=== PATIENT | female | born 1945 | race African-American/Black ===

== ENCOUNTER 2021-08-31 03:52 | Inpatient (IN) | payer MEDICARE, BC ==
[2021-08-31] MEDS ORDERED: Nitroglycerin 50 MG/250 ML BOT 250 ML ONE (04:14)
[2021-08-31] MEDS ORDERED: Nitroglycerin 0.4 MG TAB 1 EACH ONE (04:14)
[2021-08-31] MEDS ORDERED: Cefepime 2 GM VIAL ONE (04:32)
[2021-08-31 04:37] LABS: Actual Bicarbonate (HCO3v) 27 mEq/L (22-28); Base Excess 0.8 mEq/L (-2.0 to +3.0); Calcium, Ionized (venous) 1.13 mmol/L (1.16-1.32); Chloride (VBG) 102 mmol/L (98-106); Critical Notified Whom: MD; Hemoglobin (Hb) 12.7 g/dL (11.7-16.1); Potassium (VBG) 3.75 mmol/L (3.70-5.30); Puncture Site Other Site; Sodium 139.9 mmol/L (133-146); pH (venous) 7.34 (7.32-7.43)
[2021-08-31 04:53] LABS: #Basophils 0.1 10x3/uL (0.0-0.2); #Eosinphils 0.1 10x3/uL (0.0-0.5); #Monocytes 0.7 10x3/uL (0.0-1.1); #Neutrophils 12.6 10x3/uL (1.5-8.4); %Basophils 0.5 % (0.0-2.0); %Eosinophils 0.7 % (0.0-6.0); %Lymphocytes 8.1 % (18.0-47.0); %Monocytes 4.8 % (0.0-10.0); %Neutrophils 85.5 % (40.0-75.0); Hemoglobin 12.1 g/dL (12.0-15.5); Mean Corpuscular HGB CONC 31.4 g/dL (32.0-36.0); Mean Corpuscular Hemoglobin 27.8 pg (27.0-33.0); Mean Corpuscular Volume 88.5 fl (81.6-98.3); Mean Platelet Volume 9.9 fl (7.4-10.4); Platelet Count 197 10x3/uL (150-450); RBC Distribution Width 15.9 % (11.5-14.5); Red Blood Cell (RBC) Count 4.35 10x6/uL (3.90-5.03); White Blood Cell (WBC) Count 14.8 10x3/uL (3.5-10.5)
[2021-08-31] MEDS ORDERED: Acetaminophen 500 MG TAB ONE (04:58)
[2021-08-31] MEDS ORDERED: Vancomycin HCl 500 MG VIAL ONE (04:58)
[2021-08-31 05:07] LABS: ALT (SGPT) 21 U/L (8-55); AST (SGOT) 24 U/L (5-34); Albumin 4.1 g/dL (3.4-4.8); Alkaline Phosphatase 157 U/L (40-110); Anion Gap 18 mmol/L (10-20); BUN (Urea Nitrogen) 28 mg/dL (9.8-20.1); Bilirubin, Total 1.2 mg/dL (0.2-1.2); Calc. Creatinine Clearance 0 mL/min (70-130); Calcium 9.5 mg/dL (7.8-10.44); Carbon Dioxide 25 mmol/L (23-31); Chloride 103 mmol/L (98-107); Globulin 2.9 g/dL (2.4-3.5); Glucose 239 mg/dL (83-110); Potassium 3.9 mmol/L (3.5-5.1); Sodium 142 mmol/L (136-145)
[2021-08-31 05:15] LABS: SARS-CoV-2 NAA Rapid Test Not Detected (NotDetected)
[2021-08-31 05:30] LABS: CKMB 1.2 ng/mL (0-6.6)
[2021-08-31 05:57] LABS: Bilirubin Neg (Negative); Blood, Urine 25 (Negative); Clarity Clear (Clear); Glucose, Urine (Dipstick) 100 mg/dL (Negative); Ketone, Urine Negative (Negative); Leukocyte Negative (Negative); Nitrite Negative (Negative); Protein, Urine (Dipstick) 500 mg/dl (Neg-Trace); Urobilinogen Normal mg/dL (Less than 2)
[2021-08-31 06:12] LABS: Bacteria/HPF None Seen HPF (None Seen); WBC/HPF 0-3 HPF (0-3)
[2021-08-31] MEDS ORDERED: Dextrose 5% in Water 1,000 ML IV PRN (06:34)
[2021-08-31] MEDS ORDERED: Dextrose 50% Abboject 50 ML SYRINGE SLOW IVP PRN (06:34)
[2021-08-31] MEDS ORDERED: Nitroglycerin 2% Ointment 1 INCH/1 GM Packet ONE (07:00)
[2021-08-31 07:42] LABS: Lactic Acid 0.8 mmol/L (0.5-2.2)
[2021-08-31 07:46] LABS: Magnesium 1.7 mg/dL (1.6-2.6); Phosphorus 3.5 mg/dL (2.3-4.7)
[2021-08-31 08:03] LABS: INR-International Normal Ratio 1.1; PTT 25.9 sec (22.0-33.0); Troponin I 0.379 ng/mL (< 0.028)
[2021-08-31] MEDS ORDERED: methylPREDNISolone Sod Succ/PF 125 MG/2 ML VIAL IVP SCH (08:30)
[2021-08-31] MEDS ORDERED: Arformoterol 15 MCG/2 ML NEB NEB SCH (08:45)
[2021-08-31] MEDS ORDERED: Levothyroxine Sodium 100 MCG TAB PO SCH (08:45)
[2021-08-31 08:58] VITALS: BMI 26.5
[2021-08-31 09:36] VITALS: TEMP 98.7
[2021-08-31] MEDS: Amlodipine 10 MG TAB PO SCH (10:00)
[2021-08-31] MEDS: Pantoprazole 40 MG VIAL IVP SCH (10:06)
[2021-08-31] MEDS: Heparin 5,000 UNITS/ML VIAL SC SCH ×3 (10:06→20:05)
[2021-08-31] MEDS: Clopidogrel Bisulfate 75 MG TAB PO SCH (10:07)
[2021-08-31] MEDS: Aspirin 81 mg Enteric Coated Tablet PO SCH (10:07)
[2021-08-31] MEDS: Lantus 1000 UNITS/10 ML VIAL SC SCH (10:08)
[2021-08-31 10:48] LABS: Troponin I 0.805 ng/mL (< 0.028)
[2021-08-31 12:21] LABS: Hep B Surf Ag Non-Reactive S/CO (NonReactive)
[2021-08-31] MEDS: Folic Acid/Vit B Comp W-C PO SCH (12:35)
[2021-08-31] MEDS: Nitroglycerin 2% Ointment 1 INCH/1 GM Packet TOP SCH ×3 (12:36→23:46)
[2021-08-31] MEDS: HumaLOG 300 UNITS/3 ML VIAL SC PRN ×3 (13:14→21:06)
[2021-08-31] MEDS: Carvedilol 12.5 MG TAB PO SCH ×2 (14:45→20:05)
[2021-08-31] MEDS: cloNIDine 0.1 MG TAB PO SCH (14:45)
[2021-08-31] MEDS: Minoxidil 2.5 MG TAB PO SCH ×2 (14:46→20:06)
[2021-08-31] MEDS: Furosemide 40 MG TAB PO SCH ×2 (14:53→20:05)
[2021-08-31] MEDS ORDERED: Losartan Potassium 50 MG TAB PO SCH (17:00)
[2021-08-31] MEDS: methylPREDNISolone Sod Succ 40 MG VIAL IVP SCH (18:45)
[2021-08-31] MEDS: Arformoterol 15 MCG/2 ML NEB NEB SCH (19:50)
[2021-08-31 20:51] LABS: HBSAB Concentration 127.23 mIU/mL; Hep B Surf AB Reactive (NonReactive)
[2021-08-31] MEDS ORDERED: Atorvastatin Calcium 40 MG TAB PO SCH (21:00)
[2021-08-31] MEDS ORDERED: Lantus 1000 UNITS/10 ML VIAL SC SCH (21:00)
[2021-09-01] MEDS: Nitroglycerin 2% Ointment 1 INCH/1 GM Packet TOP SCH ×2 (05:06→10:33)
[2021-09-01 05:09] LABS: #Monocytes 0.5 10x3/uL (0.0-1.1); #Neutrophils 6.4 10x3/uL (1.5-8.4); %Basophils 0.4 % (0.0-2.0); %Lymphocytes 9.1 % (18.0-47.0); %Monocytes 5.9 % (0.0-10.0); %Neutrophils 84.1 % (40.0-75.0); Hemoglobin 10.2 g/dL (12.0-15.5); Mean Corpuscular Hemoglobin 27.6 pg (27.0-33.0); Mean Corpuscular Volume 86.4 fl (81.6-98.3); Platelet Count 150 10x3/uL (150-450); RBC Distribution Width 15.7 % (11.5-14.5); Red Blood Cell (RBC) Count 3.69 10x6/uL (3.90-5.03); White Blood Cell (WBC) Count 7.6 10x3/uL (3.5-10.5)
[2021-09-01 05:16] LABS: Anion Gap 13 mmol/L (10-20); BUN (Urea Nitrogen) 24 mg/dL (9.8-20.1); Calc. Creatinine Clearance 12 mL/min (70-130); Calcium 8.7 mg/dL (7.8-10.44); Carbon Dioxide 29 mmol/L (23-31); Cardiac Risk 2.4 (Less than 4.5); Chloride 100 mmol/L (98-107); Cholesterol 95 mg/dl (< 200 Desired); Glucose 222 mg/dL (83-110); HDL Cholesterol 39 mg/dL (>60 Neg Risk); LDL Cholesterol, Calculated 47 mg/dL; Potassium 4.2 mmol/L (3.5-5.1); Sodium 138 mmol/L (136-145); Triglycerides 47 mg/dL (Less than 150)
[2021-09-01] MEDS ORDERED: Levothyroxine Sodium 100 MCG TAB PO SCH (06:00)
[2021-09-01] MEDS: Arformoterol 15 MCG/2 ML NEB NEB SCH (06:50)
[2021-09-01] MEDS: methylPREDNISolone Sod Succ 40 MG VIAL IVP SCH (08:05)
[2021-09-01] MEDS: HumaLOG 300 UNITS/3 ML VIAL SC PRN (08:06)
[2021-09-01] MEDS ORDERED: Cefepime 0.5 GM in Sodium Chloride 0.9% 100 ML IVPB SCH (09:00)
[2021-09-01] MEDS: Amlodipine 10 MG TAB PO SCH (09:00)
[2021-09-01] MEDS: Minoxidil 2.5 MG TAB PO SCH (10:24)
[2021-09-01] MEDS: Folic Acid/Vit B Comp W-C PO SCH (10:24)
[2021-09-01] MEDS: Aspirin 81 mg Enteric Coated Tablet PO SCH (10:26)
[2021-09-01] MEDS: Carvedilol 12.5 MG TAB PO SCH (10:26)
[2021-09-01] MEDS: Furosemide 40 MG TAB PO SCH (10:27)
[2021-09-01] MEDS: Heparin 5,000 UNITS/ML VIAL SC SCH (10:27)
[2021-09-01] MEDS: cloNIDine 0.1 MG TAB PO SCH (10:27)
[2021-09-01] MEDS: Pantoprazole 40 MG VIAL IVP SCH (10:27)
[2021-09-01] MEDS: Clopidogrel Bisulfate 75 MG TAB PO SCH (10:27)
[2021-09-01] MEDS: Lantus 1000 UNITS/10 ML VIAL SC SCH (10:29)
[2021-09-01 10:34] VITALS: BP 172/78
== END 2021-09-01 12:30 | disposition home or self-care (01) | DRG 871 ==
LOC: SUATTDRO 03:52 → CSHERS 03:52 → CSHIMCU 08:25
PROVIDERS: ADMIT Hospitalist; ATTEND Hospitalist
PROC: 5A09357 Assistance with Respiratory Ventilation, Less than 24 Consecutive Hours, Continuous Positive Airway Pressure (ICD-10-PCS; principal; 2021-08-31)
PROC: 5A1D70Z Performance of Urinary Filtration, Intermittent, Less than 6 Hours Per Day (ICD-10-PCS; 2021-09-01)
DX: A41.9 Sepsis, unspecified organism (principal); J96.01 Acute respiratory failure with hypoxia; N18.6 End stage renal disease; J18.9 Pneumonia, unspecified organism; I50.33 Acute on chronic diastolic (congestive) heart failure; I21.4 Non-ST elevation (NSTEMI) myocardial infarction; I69.354 Hemiplegia and hemiparesis following cerebral infarction affecting left non-dominant side; I13.2 Hypertensive heart and chronic kidney disease with heart failure and with stage 5 chronic kidney disease, or end stage renal disease; I16.1 Hypertensive emergency; Z20.822 Contact with and (suspected) exposure to COVID-19; J44.9 Chronic obstructive pulmonary disease, unspecified; E11.22 Type 2 diabetes mellitus with diabetic chronic kidney disease; E03.9 Hypothyroidism, unspecified; N28.89 Other specified disorders of kidney and ureter; D63.1 Anemia in chronic kidney disease; I35.0 Nonrheumatic aortic (valve) stenosis; R65.20 Severe sepsis without septic shock; E78.5 Hyperlipidemia, unspecified; E11.40 Type 2 diabetes mellitus with diabetic neuropathy, unspecified; Z99.2 Dependence on renal dialysis; Z79.4 Long term (current) use of insulin; Z79.899 Other long term (current) drug therapy; Z79.82 Long term (current) use of aspirin; Z98.51 Tubal ligation status; Z98.890 Other specified postprocedural states; Z98.42 Cataract extraction status, left eye
CPT/HCPCS: 0240U; 36415; 36416; 71045; 80048; 80053; 80061; 81003; 81015; 82553; 82805; 83605; 83735; 83880; 84100; 84443; 84484; 85025; 85610; 85730; 86706; 87040; 87086; 87340; 90935; 93005; 93010; 93306; 94640; 94660; 94760; 94762; C9113; G0257; J0692; J1644; J1815; J1956; J2920; J2930; J3370; J3490; J7620

== ENCOUNTER 2021-09-07 11:48 | Outpatient (CLI) | payer MEDICARE, BC | END 2021-09-07 11:49 | disposition home or self-care (01) | LOC: CSHMAMMO 11:48 | PROVIDERS: ATTEND Physician Assistant | DX: Z12.31 Encounter for screening mammogram for malignant neoplasm of breast (principal) | CPT/HCPCS: 77063; 77067 ==

== ENCOUNTER 2021-10-30 17:50 | Emergency (ER) | payer MEDICARE, BC ==
[2021-10-30 19:42] LABS: #Basophils 0.1 10x3/uL (0.0-0.2); #Eosinphils 0.2 10x3/uL (0.0-0.5); #Monocytes 0.4 10x3/uL (0.0-1.1); #Neutrophils 6.5 10x3/uL (1.5-8.4); %Basophils 0.7 % (0.0-2.0); %Lymphocytes 11.7 % (18.0-47.0); %Monocytes 5.4 % (0.0-10.0); %Neutrophils 79.7 % (40.0-75.0); Hemoglobin 10.4 g/dL (12.0-15.5); Mean Corpuscular HGB CONC 32.2 g/dL (32.0-36.0); Mean Corpuscular Hemoglobin 29.5 pg (27.0-33.0); Mean Corpuscular Volume 91.8 fl (81.6-98.3); Mean Platelet Volume 9.9 fl (7.4-10.4); Platelet Count 176 10x3/uL (150-450); RBC Distribution Width 15.5 % (11.5-14.5); Red Blood Cell (RBC) Count 3.52 10x6/uL (3.90-5.03); White Blood Cell (WBC) Count 8.1 10x3/uL (3.5-10.5)
[2021-10-30 19:47] LABS: ALT (SGPT) 16 U/L (8-55); AST (SGOT) 22 U/L (5-34); Alkaline Phosphatase 226 U/L (40-110); Anion Gap 17 mmol/L (10-20); BUN (Urea Nitrogen) 17 mg/dL (9.8-20.1); Bilirubin, Total 0.7 mg/dL (0.2-1.2); Calc. Creatinine Clearance 0 mL/min (70-130); Calcium 9.6 mg/dL (7.8-10.44); Carbon Dioxide 29 mmol/L (23-31); Chloride 99 mmol/L (98-107); Globulin 3.2 g/dL (2.4-3.5); Glucose 294 mg/dL (83-110); Lipase 65 U/L (8-78); Potassium 4.3 mmol/L (3.5-5.1); Protein, Total 7.2 g/dL (5.8-8.1); Sodium 141 mmol/L (136-145)
[2021-10-30 20:16] LABS: Bilirubin 3+ (Negative); Blood, Urine 250 (Negative); Clarity Cloudy (Clear); Glucose, Urine (Dipstick) 100 mg/dL (Negative); Ketone, Urine 5 mg/dL (Negative); Leukocyte 100 (Negative); Nitrite Positive (Negative); Protein, Urine (Dipstick) 500 mg/dl (Neg-Trace)
[2021-10-30 20:31] LABS: RBC/HPF Greater than 50 HPF (0-3); Renal Epithelial 0-3 HPF (None Seen); Squamous Epithelial 0-3 HPF (0-3); Transitional Epithelial 0-3 HPF (None Seen); WBC/HPF Greater Than 50 HPF (0-3)
[2021-10-30 20:34] LABS: Bacteria/HPF 2+ HPF (None Seen)
== END 2021-10-30 21:10 | disposition home or self-care (01) ==
LOC: CSHERS 17:50
DX: N39.0 Urinary tract infection, site not specified (principal); R11.2 Nausea with vomiting, unspecified; E11.9 Type 2 diabetes mellitus without complications; E03.9 Hypothyroidism, unspecified; I10 Essential (primary) hypertension; J45.909 Unspecified asthma, uncomplicated; Z86.73 Personal history of transient ischemic attack (TIA), and cerebral infarction without residual deficits; Z79.899 Other long term (current) drug therapy; Z79.82 Long term (current) use of aspirin
CPT/HCPCS: 36415; 74176; 80053; 81003; 81015; 83690; 85025

== ENCOUNTER 2021-11-04 15:56 | Outpatient (CLI) | payer MEDICARE, OTHER | END 2021-11-04 15:57 | disposition home or self-care (01) | LOC: CSHULT 15:56 | PROVIDERS: ATTEND Urology | DX: N18.6 End stage renal disease (principal); N28.89 Other specified disorders of kidney and ureter | CPT/HCPCS: 76770 ==

== ENCOUNTER 2021-11-08 16:52 | Emergency (ER) | payer MEDICARE, OTHER ==
[2021-11-08 17:54] LABS: #Basophils 0.1 10x3/uL (0.0-0.2); #Eosinphils 0.2 10x3/uL (0.0-0.5); #Monocytes 0.8 10x3/uL (0.0-1.1); #Neutrophils 8.6 10x3/uL (1.5-8.4); %Basophils 0.9 % (0.0-2.0); %Lymphocytes 8.4 % (18.0-47.0); %Monocytes 7.2 % (0.0-10.0); %Neutrophils 81.1 % (40.0-75.0); Hemoglobin 9.6 g/dL (12.0-15.5); Mean Corpuscular HGB CONC 32.9 g/dL (32.0-36.0); Mean Corpuscular Hemoglobin 29.4 pg (27.0-33.0); Mean Corpuscular Volume 89.6 fl (81.6-98.3); Mean Platelet Volume 10.2 fl (7.4-10.4); Platelet Count 211 10x3/uL (150-450); RBC Distribution Width 14.5 % (11.5-14.5); Red Blood Cell (RBC) Count 3.26 10x6/uL (3.90-5.03); White Blood Cell (WBC) Count 10.6 10x3/uL (3.5-10.5)
[2021-11-08 18:05] LABS: ALT (SGPT) 19 U/L (8-55); AST (SGOT) 21 U/L (5-34); Alkaline Phosphatase 163 U/L (40-110); Anion Gap 19 mmol/L (10-20); BUN (Urea Nitrogen) 47 mg/dL (9.8-20.1); Bilirubin, Total 0.6 mg/dL (0.2-1.2); Calc. Creatinine Clearance 0 mL/min (70-130); Calcium 9.1 mg/dL (7.8-10.44); Carbon Dioxide 24 mmol/L (23-31); Chloride 98 mmol/L (98-107); Globulin 2.8 g/dL (2.4-3.5); Glucose 300 mg/dL (83-110); Potassium 4.4 mmol/L (3.5-5.1); Protein, Total 6.8 g/dL (5.8-8.1); Sodium 137 mmol/L (136-145)
[2021-11-08 18:11] LABS: Bilirubin 1+ (Negative); Blood, Urine 25 (Negative); Glucose, Urine (Dipstick) 100 mg/dL (Negative); Ketone, Urine Negative (Negative); Leukocyte 25 (Negative); Nitrite Negative (Negative); Protein, Urine (Dipstick) 100 mg/dl (Neg-Trace); Specific Gravity, Urine 1.015 (1.002-1.036); Urobilinogen Normal mg/dL (Less than 2)
[2021-11-08 18:24] LABS: Bacteria/HPF 2+ HPF (None Seen); Clarity Clear (Clear); Mucous/LPF 1+ LPF (<2+); RBC/HPF 0-3 HPF (0-3); Squamous Epithelial 0-3 HPF (0-3); Transitional Epithelial 0-3 HPF (None Seen)
[2021-11-08] MEDS ORDERED: Ondansetron ODT 4 MG TAB ONE (18:34)
[2021-11-08] MEDS ORDERED: Ketorolac Tromethamine 30 MG/ML VIAL ONE (18:35)
== END 2021-11-08 19:44 | disposition home or self-care (01) ==
LOC: CSHERS 16:52
DX: R10.9 Unspecified abdominal pain (principal); E11.9 Type 2 diabetes mellitus without complications; E03.9 Hypothyroidism, unspecified; I10 Essential (primary) hypertension; K21.9 Gastro-esophageal reflux disease without esophagitis; J45.909 Unspecified asthma, uncomplicated; Z86.73 Personal history of transient ischemic attack (TIA), and cerebral infarction without residual deficits; Z79.899 Other long term (current) drug therapy; Z79.82 Long term (current) use of aspirin
CPT/HCPCS: 36415; 80053; 81003; 81015; 85025; 96372; 99284; J1885; Q0162

== ENCOUNTER 2022-03-06 00:42 | Inpatient (IN) | payer MEDICARE, OTHER ==
[2022-03-06 01:47] LABS: #Basophils 0.1 10x3/uL (0.0-0.2); #Eosinphils 0.3 10x3/uL (0.0-0.5); #Monocytes 1.2 10x3/uL (0.0-1.1); #Neutrophils 14.1 10x3/uL (1.5-8.4); %Basophils 0.6 % (0.0-2.0); %Eosinophils 1.8 % (0.0-6.0); %Lymphocytes 5.7 % (18.0-47.0); %Monocytes 6.9 % (0.0-10.0); %Neutrophils 84.6 % (40.0-75.0); Hemoglobin 10.4 g/dL (12.0-15.5); Mean Corpuscular HGB CONC 31.8 g/dL (32.0-36.0); Mean Corpuscular Hemoglobin 29.1 pg (27.0-33.0); Mean Corpuscular Volume 91.6 fl (81.6-98.3); Mean Platelet Volume 9.4 fl (7.4-10.4); Platelet Count 169 10x3/uL (150-450); RBC Distribution Width 15.3 % (11.5-14.5); Red Blood Cell (RBC) Count 3.57 10x6/uL (3.90-5.03); White Blood Cell (WBC) Count 16.7 10x3/uL (3.5-10.5)
[2022-03-06 01:54] LABS: ALT (SGPT) 15 U/L (8-55); AST (SGOT) 24 U/L (5-34); Albumin 3.5 g/dL (3.4-4.8); Alkaline Phosphatase 122 U/L (40-110); Anion Gap 20 mmol/L (10-20); BUN (Urea Nitrogen) 25 mg/dL (9.8-20.1); Bilirubin, Total 1.1 mg/dL (0.2-1.2); Calc. Creatinine Clearance 0 mL/min (70-130); Calcium 9.3 mg/dL (7.8-10.44); Carbon Dioxide 25 mmol/L (23-31); Chloride 103 mmol/L (98-107); Globulin 2.7 g/dL (2.4-3.5); Glucose 182 mg/dL (83-110); Potassium 4.1 mmol/L (3.5-5.1); Protein, Total 6.2 g/dL (5.8-8.1); Sodium 144 mmol/L (136-145)
[2022-03-06 02:11] LABS: CKMB 1.7 ng/mL (0-6.6)
[2022-03-06] MEDS ORDERED: cloNIDine 0.1 MG TAB ONE (02:24)
[2022-03-06] MEDS ORDERED: Nitroglycerin 2% Ointment 1 INCH/1 GM Packet ONE (02:25)
[2022-03-06] MEDS ORDERED: Enalaprilat Dihydrate 1.25 MG/ML VIAL SLOW IVP SCH (02:30)
[2022-03-06] MEDS ORDERED: Furosemide 40 MG/4 ML VIAL ONE (04:17)
[2022-03-06 06:05] LABS: SARS-CoV-2 NAA Rapid Test Not Detected (NotDetected)
[2022-03-06 06:20] LABS: CKMB 1.5 ng/mL (0-6.6)
[2022-03-06] MEDS ORDERED: Dextrose 5% in Water 1,000 ML IV PRN (06:24)
[2022-03-06] MEDS ORDERED: Dextrose 50% Abboject 50 ML SYRINGE SLOW IVP PRN (06:24)
[2022-03-06] MEDS ORDERED: Aspirin Chewable 81 MG TAB PO SCH (06:30)
[2022-03-06 06:36] LABS: Magnesium 1.9 mg/dL (1.6-2.6); Phosphorus 3.5 mg/dL (2.3-4.7)
[2022-03-06] MEDS ORDERED: Albuterol Sulfate 2.5 mg/3 ml Neb NEB PRN (08:26)
[2022-03-06] MEDS ORDERED: Heparin 10,000 UNITS/ 10 ML VIAL FS SCH (08:30)
[2022-03-06] MEDS ORDERED: EPOETIN ALFA-EPBX (ESRD) 3,000 UNIT/ML VIAL IVP SCH (08:30)
[2022-03-06] MEDS: Nitroglycerin 2% Ointment 1 INCH/1 GM Packet TOP SCH ×3 (08:38→21:25)
[2022-03-06 08:49] VITALS: BMI 24.0
[2022-03-06] MEDS: Carvedilol 25 MG TAB PO SCH ×2 (08:58→16:24)
[2022-03-06] MEDS: cloNIDine 0.1 MG TAB PO SCH ×2 (08:58→19:52)
[2022-03-06] MEDS: Clopidogrel Bisulfate 75 MG TAB PO SCH (08:58)
[2022-03-06] MEDS: Heparin 5,000 UNITS/ML VIAL SC SCH ×3 (08:58→19:52)
[2022-03-06] MEDS: Losartan Potassium 50 MG TAB PO SCH (08:58)
[2022-03-06] MEDS: Amlodipine 10 MG TAB PO SCH (08:59)
[2022-03-06] MEDS: Minoxidil 2.5 MG TAB PO SCH ×2 (09:00→19:54)
[2022-03-06 09:03] VITALS: BP 173/80
[2022-03-06 10:15] VITALS: TEMP 97.8
[2022-03-06 10:22] LABS: CKMB 1.5 ng/mL (0-6.6)
[2022-03-06] MEDS: HumaLOG 300 UNITS/3 ML VIAL SC PRN ×2 (16:24→21:42)
[2022-03-06] MEDS ORDERED: Atorvastatin Calcium 40 MG TAB PO SCH (21:00)
[2022-03-06] MEDS ORDERED: Lantus 1000 UNITS/10 ML VIAL SC SCH (21:00)
[2022-03-07] MEDS: Nitroglycerin 2% Ointment 1 INCH/1 GM Packet TOP SCH (06:08)
[2022-03-07] MEDS: Carvedilol 25 MG TAB PO SCH (08:19)
[2022-03-07] MEDS: Losartan Potassium 50 MG TAB PO SCH (08:19)
[2022-03-07] MEDS: Amlodipine 10 MG TAB PO SCH (08:19)
[2022-03-07] MEDS: Clopidogrel Bisulfate 75 MG TAB PO SCH (08:19)
[2022-03-07] MEDS: cloNIDine 0.1 MG TAB PO SCH (08:19)
[2022-03-07] MEDS: Heparin 5,000 UNITS/ML VIAL SC SCH (08:20)
[2022-03-07] MEDS ORDERED: Aspirin 81 mg Enteric Coated Tablet PO SCH (09:00)
[2022-03-07] MEDS: Minoxidil 2.5 MG TAB PO SCH (09:49)
== END 2022-03-07 15:09 | disposition home or self-care (01) | DRG 291 ==
LOC: CSHERS 00:42 → SUATTDRO 00:42 → CSHIMCU 08:23
PROVIDERS: ADMIT Internal Medicine; ATTEND Internal Medicine
PROC: 5A1D70Z Performance of Urinary Filtration, Intermittent, Less than 6 Hours Per Day (ICD-10-PCS; principal; 2022-03-06)
DX: I13.2 Hypertensive heart and chronic kidney disease with heart failure and with stage 5 chronic kidney disease, or end stage renal disease (principal); N18.6 End stage renal disease; J96.01 Acute respiratory failure with hypoxia; J81.0 Acute pulmonary edema; I50.33 Acute on chronic diastolic (congestive) heart failure; D63.1 Anemia in chronic kidney disease; D72.829 Elevated white blood cell count, unspecified; J44.9 Chronic obstructive pulmonary disease, unspecified; E11.40 Type 2 diabetes mellitus with diabetic neuropathy, unspecified; E11.22 Type 2 diabetes mellitus with diabetic chronic kidney disease; Z20.822 Contact with and (suspected) exposure to COVID-19; Z79.4 Long term (current) use of insulin; Z79.890 Hormone replacement therapy; Z99.2 Dependence on renal dialysis; Z79.82 Long term (current) use of aspirin; Z79.84 Long term (current) use of oral hypoglycemic drugs; Z79.899 Other long term (current) drug therapy; I25.2 Old myocardial infarction; Z98.42 Cataract extraction status, left eye; Z98.51 Tubal ligation status; Z98.890 Other specified postprocedural states; Z80.1 Family history of malignant neoplasm of trachea, bronchus and lung; Z80.8 Family history of malignant neoplasm of other organs or systems; Z79.02 Long term (current) use of antithrombotics/antiplatelets
CPT/HCPCS: 36416; 71045; 80053; 82553; 83735; 83880; 84100; 84484; 85025; 90935; 93005; 94660; 94760; 96374; 96375; G0257; J1644; J1815; J1940; Q5105; U0002

== ENCOUNTER 2022-07-30 12:03 | Emergency (ER) | payer MEDICARE, OTHER ==
[2022-07-30] MEDS ORDERED: HYDROcodone/Acetaminophen 5/325 mg Tablet ONE (12:41)
[2022-07-30] MEDS ORDERED: Lidocaine 5% Patch TD SCH (12:45)
== END 2022-07-30 14:09 | disposition home or self-care (01) ==
LOC: CSHERS 12:03
DX: M54.6 Pain in thoracic spine (principal); E11.22 Type 2 diabetes mellitus with diabetic chronic kidney disease; E03.9 Hypothyroidism, unspecified; I12.0 Hypertensive chronic kidney disease with stage 5 chronic kidney disease or end stage renal disease; N18.6 End stage renal disease; Z99.2 Dependence on renal dialysis; Z79.899 Other long term (current) drug therapy
CPT/HCPCS: 71045

== ENCOUNTER 2022-08-30 21:15 | Emergency (ER) | payer MEDICARE, OTHER ==
[~2022-08-30 21:15] MED LIST: GASTROGRAFIN 30 ML BOT ONE; Iopamidol 300 61% 100 ML VIAL FS ONE
[2022-08-30] MEDS ORDERED: Fentanyl 100 MCG/2 ML VIAL ONE (22:38)
[2022-08-30 22:51] LABS: #Basophils 0.1 10x3/uL (0.0-0.2); #Eosinphils 0.3 10x3/uL (0.0-0.5); #Monocytes 0.7 10x3/uL (0.0-1.1); #Neutrophils 5.8 10x3/uL (1.5-8.4); %Basophils 1.2 % (0.0-2.0); %Eosinophils 3.7 % (0.0-6.0); %Lymphocytes 14.7 % (18.0-47.0); %Monocytes 8.3 % (0.0-10.0); %Neutrophils 71.9 % (40.0-75.0); Hemoglobin 15.6 g/dL (12.0-15.5); Mean Corpuscular HGB CONC 32.6 g/dL (32.0-36.0); Mean Platelet Volume 9.2 fl (7.4-10.4); Platelet Count 198 10x3/uL (150-450); RBC Distribution Width 14.7 % (11.5-14.5); Red Blood Cell (RBC) Count 5.38 10x6/uL (3.90-5.03); White Blood Cell (WBC) Count 8.1 10x3/uL (3.5-10.5)
[2022-08-30 23:07] LABS: ALT (SGPT) 14 U/L (8-55); AST (SGOT) 22 U/L (5-34); Albumin 4.2 g/dL (3.4-4.8); Alkaline Phosphatase 181 U/L (40-110); Anion Gap 19 mmol/L (10-20); BUN (Urea Nitrogen) 29 mg/dL (9.8-20.1); Bilirubin, Total 0.8 mg/dL (0.2-1.2); Calc. Creatinine Clearance 0 mL/min (70-130); Calcium 9.6 mg/dL (7.8-10.44); Carbon Dioxide 26 mmol/L (23-31); Chloride 96 mmol/L (98-107); Estimated GFR 6; Globulin 3.7 g/dL (2.4-3.5); Glucose 179 mg/dL (83-110); Potassium 4.9 mmol/L (3.5-5.1); Protein, Total 7.9 g/dL (5.8-8.1); Sodium 136 mmol/L (136-145)
== END 2022-08-31 02:04 | disposition home or self-care (01) ==
LOC: CSHERS 21:15
DX: K43.9 Ventral hernia without obstruction or gangrene (principal); E11.22 Type 2 diabetes mellitus with diabetic chronic kidney disease; I12.0 Hypertensive chronic kidney disease with stage 5 chronic kidney disease or end stage renal disease; N18.6 End stage renal disease; E03.9 Hypothyroidism, unspecified; K21.9 Gastro-esophageal reflux disease without esophagitis; J44.9 Chronic obstructive pulmonary disease, unspecified; Z79.899 Other long term (current) drug therapy
CPT/HCPCS: 36415; 74177; 80053; 83605; 85025; 96374; J3010; Q9963; Q9967

== ENCOUNTER 2022-12-01 08:12 | Outpatient (CLI) | payer MEDICARE, OTHER | END 2022-12-01 08:13 | disposition home or self-care (01) | LOC: CSHULT 08:12 | PROVIDERS: ATTEND Urology | DX: N28.89 Other specified disorders of kidney and ureter (principal) | CPT/HCPCS: 76770 ==

== ENCOUNTER 2022-12-13 00:28 | Inpatient (IN) | payer MEDICARE, OTHER ==
[2022-12-13 01:06] LABS: #Basophils 0.1 10x3/uL (0.0-0.2); #Eosinphils 0.5 10x3/uL (0.0-0.5); #Monocytes 0.6 10x3/uL (0.0-1.1); %Basophils 1.7 % (0.0-2.0); %Eosinophils 7.3 % (0.0-6.0); %Lymphocytes 12.6 % (18.0-47.0); %Monocytes 8.1 % (0.0-10.0); Hemoglobin 9.5 g/dL (12.0-15.5); Mean Corpuscular HGB CONC 32.1 g/dL (32.0-36.0); Mean Corpuscular Hemoglobin 29.1 pg (27.0-33.0); Mean Corpuscular Volume 90.8 fl (81.6-98.3); Mean Platelet Volume 9.5 fl (7.4-10.4); Platelet Count 175 10x3/uL (150-450); RBC Distribution Width 14.9 % (11.5-14.5); Red Blood Cell (RBC) Count 3.26 10x6/uL (3.90-5.03); White Blood Cell (WBC) Count 7.2 10x3/uL (3.5-10.5)
[2022-12-13 01:17] LABS: ALT (SGPT) 11 U/L (8-55); AST (SGOT) 16 U/L (5-34); Albumin 3.7 g/dL (3.4-4.8); Alkaline Phosphatase 117 U/L (40-110); Anion Gap 14 mmol/L (10-20); BUN (Urea Nitrogen) 9 mg/dL (9.8-20.1); Bilirubin, Total 1.5 mg/dL (0.2-1.2); Calc. Creatinine Clearance 0 mL/min (70-130); Calcium 9.4 mg/dL (7.8-10.44); Carbon Dioxide 31 mmol/L (23-31); Chloride 102 mmol/L (98-107); Estimated GFR 13; Globulin 2.2 g/dL (2.4-3.5); Glucose 126 mg/dL (83-110); Potassium 3.5 mmol/L (3.5-5.1); Protein, Total 5.9 g/dL (5.8-8.1); Sodium 143 mmol/L (136-145)
[2022-12-13] MEDS ORDERED: cloNIDine 0.1 MG TAB ONE (01:34)
[2022-12-13 01:40] LABS: CKMB 1.7 ng/mL (0-6.6)
[2022-12-13] MEDS ORDERED: Ondansetron PF 4 MG/2 ML Vial IVP PRN (02:13)
[2022-12-13] MEDS ORDERED: Senokot S 8.6-50 MG TAB PO PRN (02:13)
[2022-12-13] MEDS ORDERED: Dextrose 5% in Water 1,000 ML IV PRN (02:13)
[2022-12-13] MEDS ORDERED: Dextrose 50% Abboject 50 ML SYRINGE SLOW IVP PRN (02:13)
[2022-12-13] MEDS ORDERED: Acetaminophen 325 MG TAB PO PRN (02:13)
[2022-12-13] MEDS ORDERED: Guaifenesin DM 100-10/5 ML UDCUP PO PRN (02:13)
[2022-12-13] MEDS ORDERED: Calcium Carbonate 500 MG ChewTAB PO PRN (02:13)
[2022-12-13] MEDS ORDERED: Ventolin HFA Inhaler 60 PUFF INHALER INH PRN (02:16)
[2022-12-13] MEDS ORDERED: Nitroglycerin 2% Ointment 1 INCH/1 GM Packet ONE (02:44)
[2022-12-13] MEDS ORDERED: hydrALAZINE 20 MG/ML VIAL SLOW IVP PRN (02:46)
[2022-12-13] MEDS ORDERED: Nitroglycerin 2% Ointment 1 INCH/1 GM Packet TOP SCH (03:00)
[2022-12-13] MEDS ORDERED: Ventolin HFA Inhaler 60 PUFF INHALER ONE (03:42)
[2022-12-13] MEDS ORDERED: hydrALAZINE 20 MG/ML VIAL ONE (03:50)
[2022-12-13 04:09] LABS: SARS-CoV-2 NAA Rapid Test Not Detected (NotDetected)
[2022-12-13] MEDS ORDERED: Ipratropium/Albuterol 3 ML NEB ONE (04:19)
[2022-12-13] MEDS ORDERED: Furosemide 40 MG/4 ML VIAL ONE (04:34)
[2022-12-13 04:59] LABS: CKMB 1.5 ng/mL (0-6.6)
[2022-12-13] MEDS: Levothyroxine Sodium 100 MCG TAB PO SCH (06:08)
[2022-12-13] MEDS: HumaLOG 300 UNITS/3 ML VIAL SC PRN ×2 (06:21→21:38)
[2022-12-13] MEDS ORDERED: Mometasone/Formoterol 200/5 60 PUFF INH SCH (06:30)
[2022-12-13] MEDS: Heparin 5,000 UNITS/ML VIAL SC SCH ×3 (07:47→21:30)
[2022-12-13] MEDS: Furosemide 40 MG TAB PO SCH ×2 (07:47→21:30)
[2022-12-13] MEDS: Amlodipine 10 MG TAB PO SCH (07:48)
[2022-12-13] MEDS: Folic Acid/Vit B Comp W-C PO SCH (07:48)
[2022-12-13] MEDS: Aspirin 81 mg Enteric Coated Tablet PO SCH (07:48)
[2022-12-13] MEDS: Carvedilol 25 MG TAB PO SCH ×2 (07:48→21:41)
[2022-12-13] MEDS ORDERED: cloNIDine 0.1 MG TAB PO SCH (09:00)
[2022-12-13] MEDS: Alogliptin 6.25 MG TAB PO SCH (09:02)
[2022-12-13] MEDS: Lantus 1000 UNITS/10 ML VIAL SC SCH (09:03)
[2022-12-13] MEDS: Minoxidil 2.5 MG TAB PO SCH ×2 (09:32→21:40)
[2022-12-13 10:26] LABS: CKMB 1.6 ng/mL (0-6.6)
[2022-12-13 10:29] LABS: Anion Gap 15 mmol/L (10-20); BUN (Urea Nitrogen) 13 mg/dL (9.8-20.1); Calc. Creatinine Clearance 11 mL/min (70-130); Calcium 9.1 mg/dL (7.8-10.44); Carbon Dioxide 30 mmol/L (23-31); Chloride 101 mmol/L (98-107); Estimated GFR 11; Glucose 113 mg/dL (83-110); Potassium 3.6 mmol/L (3.5-5.1); Sodium 142 mmol/L (136-145)
[2022-12-13] MEDS: Losartan Potassium 50 MG TAB PO SCH (15:28)
[2022-12-13] MEDS: cloNIDine 0.1 MG TAB PO SCH ×2 (16:22→21:30)
[2022-12-13] MEDS: Budesonide 0.25 MG/2 ML NEB INH SCH (20:40)
[2022-12-13] MEDS ORDERED: Lantus 1000 UNITS/10 ML VIAL SC SCH (21:00)
[2022-12-13] MEDS: Atorvastatin Calcium 40 MG TAB PO SCH (21:30)
[2022-12-14 05:02] LABS: HBSAg Index 0.15 S/CO (0-0.99); Hep B Surf Ag Non-Reactive S/CO (NonReactive)
[2022-12-14] MEDS: Levothyroxine Sodium 100 MCG TAB PO SCH (05:47)
[2022-12-14] MEDS: Budesonide 0.25 MG/2 ML NEB INH SCH ×2 (07:10→19:46)
[2022-12-14] MEDS: Amlodipine 10 MG TAB PO SCH (07:57)
[2022-12-14] MEDS: Carvedilol 25 MG TAB PO SCH ×2 (07:57→20:02)
[2022-12-14] MEDS: Furosemide 40 MG TAB PO SCH ×2 (07:57→20:01)
[2022-12-14] MEDS: Aspirin 81 mg Enteric Coated Tablet PO SCH (07:57)
[2022-12-14] MEDS: Folic Acid/Vit B Comp W-C PO SCH (07:58)
[2022-12-14] MEDS: Heparin 5,000 UNITS/ML VIAL SC SCH ×3 (07:58→20:00)
[2022-12-14] MEDS: Minoxidil 2.5 MG TAB PO SCH (12:49)
[2022-12-14] MEDS: Alogliptin 6.25 MG TAB PO SCH (13:34)
[2022-12-14] MEDS: cloNIDine 0.1 MG TAB PO SCH ×3 (13:35→20:02)
[2022-12-14 13:45] LABS: HBSAB Concentration 37.82 mIU/mL; Hep B Surf AB Reactive (NonReactive)
[2022-12-14] MEDS: hydrALAZINE 25 MG TAB PO SCH ×2 (15:27→20:01)
[2022-12-14] MEDS: Losartan Potassium 50 MG TAB PO SCH (17:10)
[2022-12-14] MEDS: HumaLOG 300 UNITS/3 ML VIAL SC PRN (17:30)
[2022-12-14] MEDS: Lantus 1000 UNITS/10 ML VIAL SC SCH (19:37)
[2022-12-14] MEDS: Atorvastatin Calcium 40 MG TAB PO SCH (20:01)
[2022-12-15] MEDS: HumaLOG 300 UNITS/3 ML VIAL SC PRN ×2 (00:19→11:53)
[2022-12-15 04:32] LABS: Platelet Count 169 10x3/uL (150-450)
[2022-12-15 04:56] LABS: Anion Gap 15 mmol/L (10-20); BUN (Urea Nitrogen) 17 mg/dL (9.8-20.1); Calc. Creatinine Clearance 11 mL/min (70-130); Calcium 9.2 mg/dL (7.8-10.44); Carbon Dioxide 26 mmol/L (23-31); Chloride 101 mmol/L (98-107); Estimated GFR 10; Glucose 115 mg/dL (83-110); Potassium 3.7 mmol/L (3.5-5.1); Sodium 138 mmol/L (136-145)
[2022-12-15] MEDS: Levothyroxine Sodium 100 MCG TAB PO SCH (05:34)
[2022-12-15 05:45] VITALS: BMI 22.4
[2022-12-15] MEDS: Budesonide 0.25 MG/2 ML NEB INH SCH (07:11)
[2022-12-15] MEDS: hydrALAZINE 25 MG TAB PO SCH ×2 (08:19→15:24)
[2022-12-15] MEDS: Furosemide 40 MG TAB PO SCH (08:20)
[2022-12-15] MEDS: Amlodipine 10 MG TAB PO SCH (08:20)
[2022-12-15] MEDS: Carvedilol 25 MG TAB PO SCH (08:20)
[2022-12-15] MEDS: Aspirin 81 mg Enteric Coated Tablet PO SCH (08:20)
[2022-12-15] MEDS: Alogliptin 6.25 MG TAB PO SCH (08:20)
[2022-12-15] MEDS: cloNIDine 0.1 MG TAB PO SCH (08:20)
[2022-12-15] MEDS: Folic Acid/Vit B Comp W-C PO SCH (08:21)
[2022-12-15] MEDS: Heparin 5,000 UNITS/ML VIAL SC SCH ×2 (08:22→14:59)
[2022-12-15] MEDS ORDERED: Minoxidil 2.5 MG TAB PO SCH (09:00)
[2022-12-15] MEDS ORDERED: Valsartan 80 MG TAB PO SCH (09:00)
[2022-12-15 12:18] VITALS: TEMP 98
[2022-12-15 15:05] VITALS: BP 105/49
== END 2022-12-15 16:30 | disposition home health service (06) | DRG 291 ==
LOC: CSHERS 00:28 → CSHERHOLD 02:43 → CSHICU 06:05
PROVIDERS: ADMIT Student in an Organized Health Care Education/Training Program; ATTEND Family Medicine
PROC: 5A09357 Assistance with Respiratory Ventilation, Less than 24 Consecutive Hours, Continuous Positive Airway Pressure (ICD-10-PCS; 2022-12-13)
PROC: 5A1D70Z Performance of Urinary Filtration, Intermittent, Less than 6 Hours Per Day (ICD-10-PCS; principal; 2022-12-14)
DX: I13.2 Hypertensive heart and chronic kidney disease with heart failure and with stage 5 chronic kidney disease, or end stage renal disease (principal); I50.33 Acute on chronic diastolic (congestive) heart failure; J96.01 Acute respiratory failure with hypoxia; N18.6 End stage renal disease; N25.81 Secondary hyperparathyroidism of renal origin; E78.5 Hyperlipidemia, unspecified; J45.909 Unspecified asthma, uncomplicated; E11.40 Type 2 diabetes mellitus with diabetic neuropathy, unspecified; I25.10 Atherosclerotic heart disease of native coronary artery without angina pectoris; D63.1 Anemia in chronic kidney disease; E03.9 Hypothyroidism, unspecified; R77.8 Other specified abnormalities of plasma proteins; I27.20 Pulmonary hypertension, unspecified; I35.0 Nonrheumatic aortic (valve) stenosis; D63.8 Anemia in other chronic diseases classified elsewhere; I16.0 Hypertensive urgency; Z20.822 Contact with and (suspected) exposure to COVID-19; Z79.899 Other long term (current) drug therapy; I25.2 Old myocardial infarction; Z99.2 Dependence on renal dialysis; Z86.73 Personal history of transient ischemic attack (TIA), and cerebral infarction without residual deficits; Z98.890 Other specified postprocedural states; Z98.51 Tubal ligation status; Z79.4 Long term (current) use of insulin; Z79.82 Long term (current) use of aspirin; Z79.51 Long term (current) use of inhaled steroids
CPT/HCPCS: 36415; 36416; 71045; 80048; 80053; 82553; 83880; 84443; 84484; 85014; 85018; 85025; 85049; 86706; 86850; 86900; 86901; 87340; 90935; 93005; 93306; 94640; 94660; 94664; 94760; 94762; 96374; G0257; J0360; J1644; J1815; J1940; J7620; J7626

== ENCOUNTER 2022-12-20 09:16 | Emergency (ER) | payer MEDICARE, OTHER ==
[2022-12-20 10:03] LABS: #Basophils 0.1 10x3/uL (0.0-0.2); #Eosinphils 0.4 10x3/uL (0.0-0.5); #Monocytes 0.8 10x3/uL (0.0-1.1); #Neutrophils 5.9 10x3/uL (1.5-8.4); %Basophils 1.5 % (0.0-2.0); %Eosinophils 4.8 % (0.0-6.0); %Lymphocytes 11.7 % (18.0-47.0); %Monocytes 9.6 % (0.0-10.0); %Neutrophils 72.2 % (40.0-75.0); Hemoglobin 10.4 g/dL (12.0-15.5); Mean Corpuscular HGB CONC 31.4 g/dL (32.0-36.0); Mean Corpuscular Hemoglobin 29.3 pg (27.0-33.0); Mean Corpuscular Volume 93.2 fl (81.6-98.3); Mean Platelet Volume 9.5 fl (7.4-10.4); Platelet Count 270 10x3/uL (150-450); RBC Distribution Width 15.8 % (11.5-14.5); Red Blood Cell (RBC) Count 3.55 10x6/uL (3.90-5.03); White Blood Cell (WBC) Count 8.2 10x3/uL (3.5-10.5)
[2022-12-20 10:20] LABS: ALT (SGPT) 13 U/L (8-55); AST (SGOT) 19 U/L (5-34); Albumin 3.7 g/dL (3.4-4.8); Alkaline Phosphatase 103 U/L (40-110); Anion Gap 16 mmol/L (10-20); BUN (Urea Nitrogen) 18 mg/dL (9.8-20.1); Bilirubin, Total 0.8 mg/dL (0.2-1.2); Calc. Creatinine Clearance 0 mL/min (70-130); Calcium 9.3 mg/dL (7.8-10.44); Carbon Dioxide 28 mmol/L (23-31); Chloride 98 mmol/L (98-107); Estimated GFR 7; Globulin 2.6 g/dL (2.4-3.5); Glucose 202 mg/dL (83-110); Potassium 3.9 mmol/L (3.5-5.1); Protein, Total 6.3 g/dL (5.8-8.1); Sodium 138 mmol/L (136-145)
[2022-12-20 11:57] LABS: Bilirubin 6 (Negative); Blood, Urine 10 (Negative); Clarity Cloudy (Clear); Glucose, Urine (Dipstick) Normal (Negative); Ketone, Urine 5 mg/dL (Negative); Leukocyte 500 (Negative); Nitrite Negative (Negative); Protein, Urine (Dipstick) 500 mg/dl (Neg-Trace)
[2022-12-20 12:10] LABS: Bacteria/HPF 1+ HPF (None Seen)
== END 2022-12-20 12:40 | disposition home or self-care (01) ==
LOC: CSHERS 09:16
DX: R82.81 Pyuria (principal); I12.0 Hypertensive chronic kidney disease with stage 5 chronic kidney disease or end stage renal disease; N18.6 End stage renal disease; E11.22 Type 2 diabetes mellitus with diabetic chronic kidney disease; E03.9 Hypothyroidism, unspecified; Z86.73 Personal history of transient ischemic attack (TIA), and cerebral infarction without residual deficits; Z99.2 Dependence on renal dialysis
CPT/HCPCS: 36415; 36416; 70450; 80053; 81003; 81015; 85025; 87086; 93005

== ENCOUNTER 2022-12-20 16:58 | Inpatient (IN) | payer MEDICARE, OTHER ==
[2022-12-20] MEDS ORDERED: cefTRIAXone (ROCEPHIN) 1 GM VIAL ONE (17:47)
[2022-12-20 18:02] LABS: #Basophils 0.1 10x3/uL (0.0-0.2); #Eosinphils 0.2 10x3/uL (0.0-0.5); #Monocytes 0.8 10x3/uL (0.0-1.1); #Neutrophils 5.6 10x3/uL (1.5-8.4); %Basophils 1.7 % (0.0-2.0); %Eosinophils 3.1 % (0.0-6.0); %Lymphocytes 11.9 % (18.0-47.0); %Monocytes 10.8 % (0.0-10.0); %Neutrophils 72.4 % (40.0-75.0); Hemoglobin 9.2 g/dL (12.0-15.5); Mean Corpuscular HGB CONC 31.3 g/dL (32.0-36.0); Mean Corpuscular Hemoglobin 29.1 pg (27.0-33.0); Mean Platelet Volume 9.8 fl (7.4-10.4); Platelet Count 260 10x3/uL (150-450); RBC Distribution Width 15.6 % (11.5-14.5); Red Blood Cell (RBC) Count 3.16 10x6/uL (3.90-5.03); White Blood Cell (WBC) Count 7.7 10x3/uL (3.5-10.5)
[2022-12-20 18:19] LABS: ALT (SGPT) 11 U/L (8-55); AST (SGOT) 15 U/L (5-34); Albumin 3.5 g/dL (3.4-4.8); Alkaline Phosphatase 100 U/L (40-110); Anion Gap 17 mmol/L (10-20); BUN (Urea Nitrogen) 22 mg/dL (9.8-20.1); Bilirubin, Total 0.6 mg/dL (0.2-1.2); Calc. Creatinine Clearance 0 mL/min (70-130); Carbon Dioxide 28 mmol/L (23-31); Chloride 99 mmol/L (98-107); Estimated GFR 6; Globulin 2.1 g/dL (2.4-3.5); Glucose 174 mg/dL (83-110); Magnesium 2.2 mg/dL (1.6-2.6); Potassium 3.9 mmol/L (3.5-5.1); Protein, Total 5.6 g/dL (5.8-8.1); Sodium 140 mmol/L (136-145)
[2022-12-20] MEDS ORDERED: Dextrose 5% in Water 1,000 ML IV PRN (19:57)
[2022-12-20] MEDS ORDERED: Ondansetron PF 4 MG/2 ML Vial IVP PRN (19:57)
[2022-12-20] MEDS ORDERED: HumaLOG 300 UNITS/3 ML VIAL SC PRN (19:57)
[2022-12-20] MEDS ORDERED: Guaifenesin DM 100-10/5 ML UDCUP PO PRN (19:57)
[2022-12-20] MEDS ORDERED: Dextrose 50% Abboject 50 ML SYRINGE SLOW IVP PRN (19:57)
[2022-12-20] MEDS ORDERED: Acetaminophen 325 MG TAB PO PRN (19:57)
[2022-12-20] MEDS ORDERED: Senokot S 8.6-50 MG TAB PO PRN (19:57)
[2022-12-20] MEDS ORDERED: Calcium Carbonate 500 MG ChewTAB PO PRN (19:57)
[2022-12-20] MEDS: Atorvastatin Calcium 40 MG TAB PO SCH (22:05)
[2022-12-20] MEDS: Heparin 5,000 UNITS/ML VIAL SC SCH (22:05)
[2022-12-20 23:38] LABS: SARS-CoV-2 NAA Rapid Test Not Detected (NotDetected)
[2022-12-21] MEDS ORDERED: Albumin 25% 25 GM/100 ML BOT IVPB SCH (02:00)
[2022-12-21 04:20] LABS: #Basophils 0.1 10x3/uL (0.0-0.2); #Eosinphils 0.3 10x3/uL (0.0-0.5); #Monocytes 0.8 10x3/uL (0.0-1.1); #Neutrophils 4.7 10x3/uL (1.5-8.4); %Basophils 1.3 % (0.0-2.0); %Eosinophils 4.9 % (0.0-6.0); %Lymphocytes 14.6 % (18.0-47.0); %Monocytes 11.6 % (0.0-10.0); %Neutrophils 67.3 % (40.0-75.0); Hemoglobin 8.4 g/dL (12.0-15.5); Mean Corpuscular HGB CONC 32.3 g/dL (32.0-36.0); Mean Corpuscular Volume 92.9 fl (81.6-98.3); Mean Platelet Volume 9.8 fl (7.4-10.4); Platelet Count 226 10x3/uL (150-450); RBC Distribution Width 15.4 % (11.5-14.5); White Blood Cell (WBC) Count 6.9 10x3/uL (3.5-10.5)
[2022-12-21 04:35] LABS: Anion Gap 18 mmol/L (10-20); BUN (Urea Nitrogen) 24 mg/dL (9.8-20.1); Calc. Creatinine Clearance 6 mL/min (70-130); Carbon Dioxide 25 mmol/L (23-31); Chloride 101 mmol/L (98-107); Estimated GFR 5; Glucose 135 mg/dL (83-110); Magnesium 2.1 mg/dL (1.6-2.6); Potassium 3.7 mmol/L (3.5-5.1); Sodium 140 mmol/L (136-145)
[2022-12-21 05:05] VITALS: BMI 21.1
[2022-12-21] MEDS: Levothyroxine Sodium 100 MCG TAB PO SCH (05:37)
[2022-12-21] MEDS: Mometasone/Formoterol 200/5 60 PUFF INH SCH ×2 (08:00→19:32)
[2022-12-21] MEDS: Ventolin HFA Inhaler 60 PUFF INHALER INH PRN (08:12)
[2022-12-21] MEDS: cefTRIAXone\\ROCEPHIN 1 GM in Sodium Chloride 0.9% 100 ML IVPB SCH (09:12)
[2022-12-21] MEDS: Folic Acid/Vit B Comp W-C PO SCH (09:12)
[2022-12-21] MEDS: Heparin 5,000 UNITS/ML VIAL SC SCH ×3 (09:12→21:16)
[2022-12-21] MEDS: Aspirin 81 mg Enteric Coated Tablet PO SCH (09:12)
[2022-12-21] MEDS: Clopidogrel Bisulfate 75 MG TAB PO SCH (09:13)
[2022-12-21] MEDS ORDERED: EPOETIN ALFA-EPBX (ESRD) 10,000 UNIT/ML VIAL IVP SCH (10:00)
[2022-12-21] MEDS ORDERED: Heparin 10,000 UNITS/ 10 ML VIAL FS SCH (11:00)
[2022-12-21] MEDS: Albumin 25% 25 GM/100 ML BOT IVPB SCH ×2 (11:33→13:45)
[2022-12-21 14:39] LABS: Hemoglobin A1c 5.7 % (4.0-6.0)
[2022-12-21] MEDS: Atorvastatin Calcium 40 MG TAB PO SCH (21:16)
[2022-12-22] MEDS: Albumin 25% 25 GM/100 ML BOT IVPB SCH ×2 (00:45→05:34)
[2022-12-22 04:00] LABS: #Basophils 0.1 10x3/uL (0.0-0.2); #Eosinphils 0.5 10x3/uL (0.0-0.5); #Monocytes 0.8 10x3/uL (0.0-1.1); #Neutrophils 4.9 10x3/uL (1.5-8.4); %Basophils 1.4 % (0.0-2.0); %Eosinophils 7.3 % (0.0-6.0); %Lymphocytes 13.7 % (18.0-47.0); %Monocytes 10.4 % (0.0-10.0); %Neutrophils 66.9 % (40.0-75.0); Hemoglobin 8.5 g/dL (12.0-15.5); Mean Corpuscular HGB CONC 32.4 g/dL (32.0-36.0); Mean Corpuscular Hemoglobin 29.5 pg (27.0-33.0); Mean Platelet Volume 9.6 fl (7.4-10.4); Platelet Count 240 10x3/uL (150-450); RBC Distribution Width 15.1 % (11.5-14.5); Red Blood Cell (RBC) Count 2.88 10x6/uL (3.90-5.03); White Blood Cell (WBC) Count 7.3 10x3/uL (3.5-10.5)
[2022-12-22 04:10] LABS: Anion Gap 15 mmol/L (10-20); BUN (Urea Nitrogen) 11 mg/dL (9.8-20.1); Calc. Creatinine Clearance 10 mL/min (70-130); Calcium 9.2 mg/dL (7.8-10.44); Carbon Dioxide 27 mmol/L (23-31); Chloride 101 mmol/L (98-107); Estimated GFR 10; Glucose 141 mg/dL (83-110); Potassium 3.6 mmol/L (3.5-5.1); Sodium 139 mmol/L (136-145)
[2022-12-22] MEDS: Levothyroxine Sodium 100 MCG TAB PO SCH (05:34)
[2022-12-22] MEDS: Mometasone/Formoterol 200/5 60 PUFF INH SCH ×2 (07:47→19:35)
[2022-12-22] MEDS: cefTRIAXone\\ROCEPHIN 1 GM in Sodium Chloride 0.9% 100 ML IVPB SCH (11:16)
[2022-12-22] MEDS: Clopidogrel Bisulfate 75 MG TAB PO SCH (11:19)
[2022-12-22] MEDS: Aspirin 81 mg Enteric Coated Tablet PO SCH (11:19)
[2022-12-22] MEDS: Folic Acid/Vit B Comp W-C PO SCH (11:20)
[2022-12-22] MEDS: Heparin 5,000 UNITS/ML VIAL SC SCH ×2 (11:26→14:49)
[2022-12-22] MEDS ORDERED: Iopamidol 370 76% 100 ML VIAL ONE (15:11)
[2022-12-22] MEDS: Atorvastatin Calcium 40 MG TAB PO SCH (23:12)
[2022-12-23 03:54] LABS: Anion Gap 17 mmol/L (10-20); BUN (Urea Nitrogen) 25 mg/dL (9.8-20.1); Calc. Creatinine Clearance 7 mL/min (70-130); Calcium 9.5 mg/dL (7.8-10.44); Carbon Dioxide 26 mmol/L (23-31); Chloride 101 mmol/L (98-107); Estimated GFR 6; Glucose 158 mg/dL (83-110); Magnesium 2.1 mg/dL (1.6-2.6); Sodium 140 mmol/L (136-145)
[2022-12-23 03:56] LABS: #Basophils 0.1 10x3/uL (0.0-0.2); #Eosinphils 0.7 10x3/uL (0.0-0.5); #Monocytes 0.8 10x3/uL (0.0-1.1); #Neutrophils 7.3 10x3/uL (1.5-8.4); %Basophils 0.8 % (0.0-2.0); %Lymphocytes 7.8 % (18.0-47.0); %Monocytes 7.8 % (0.0-10.0); %Neutrophils 76.2 % (40.0-75.0); Hemoglobin 9.1 g/dL (12.0-15.5); Mean Corpuscular HGB CONC 32.6 g/dL (32.0-36.0); Mean Corpuscular Hemoglobin 29.5 pg (27.0-33.0); Mean Corpuscular Volume 90.6 fl (81.6-98.3); Mean Platelet Volume 9.8 fl (7.4-10.4); Platelet Count 262 10x3/uL (150-450); RBC Distribution Width 15.2 % (11.5-14.5); Red Blood Cell (RBC) Count 3.08 10x6/uL (3.90-5.03); White Blood Cell (WBC) Count 9.6 10x3/uL (3.5-10.5)
[2022-12-23] MEDS: Levothyroxine Sodium 100 MCG TAB PO SCH (06:07)
[2022-12-23] MEDS: Mometasone/Formoterol 200/5 60 PUFF INH SCH ×2 (07:54→19:25)
[2022-12-23 07:56] LABS: Cardiac Risk 2.1 (Less than 4.5)
[2022-12-23] MEDS: Ventolin HFA Inhaler 60 PUFF INHALER INH PRN (07:57)
[2022-12-23] MEDS: Folic Acid/Vit B Comp W-C PO SCH (08:49)
[2022-12-23] MEDS ORDERED: Aspirin 81 mg Enteric Coated Tablet PO SCH (12:00)
[2022-12-23] MEDS ORDERED: Clopidogrel Bisulfate 300 MG TAB PO SCH (12:00)
[2022-12-23 13:54] LABS: Hemoglobin A1c 5.7 % (4.0-6.0)
[2022-12-23] MEDS: Heparin 5,000 UNITS/ML VIAL SC SCH ×2 (14:06→21:28)
[2022-12-23] MEDS: Atorvastatin Calcium 40 MG TAB PO SCH (21:28)
[2022-12-24 04:25] LABS: #Basophils 0.1 10x3/uL (0.0-0.2); #Eosinphils 0.5 10x3/uL (0.0-0.5); #Monocytes 0.7 10x3/uL (0.0-1.1); #Neutrophils 4.1 10x3/uL (1.5-8.4); %Basophils 1.4 % (0.0-2.0); %Eosinophils 8.4 % (0.0-6.0); %Lymphocytes 15.1 % (18.0-47.0); %Monocytes 11.4 % (0.0-10.0); %Neutrophils 63.4 % (40.0-75.0); Hemoglobin 8.8 g/dL (12.0-15.5); Mean Corpuscular HGB CONC 31.9 g/dL (32.0-36.0); Mean Corpuscular Hemoglobin 29.2 pg (27.0-33.0); Mean Corpuscular Volume 91.7 fl (81.6-98.3); Mean Platelet Volume 9.6 fl (7.4-10.4); Platelet Count 224 10x3/uL (150-450); RBC Distribution Width 15.2 % (11.5-14.5); Red Blood Cell (RBC) Count 3.01 10x6/uL (3.90-5.03); White Blood Cell (WBC) Count 6.4 10x3/uL (3.5-10.5)
[2022-12-24 04:31] LABS: Anion Gap 13 mmol/L (10-20); BUN (Urea Nitrogen) 15 mg/dL (9.8-20.1); Calc. Creatinine Clearance 12 mL/min (70-130); Calcium 9.1 mg/dL (7.8-10.44); Carbon Dioxide 30 mmol/L (23-31); Chloride 102 mmol/L (98-107); Estimated GFR 12; Glucose 113 mg/dL (83-110); Potassium 3.6 mmol/L (3.5-5.1); Sodium 141 mmol/L (136-145)
[2022-12-24] MEDS: Levothyroxine Sodium 100 MCG TAB PO SCH (06:06)
[2022-12-24] MEDS ORDERED: Clopidogrel Bisulfate 75 MG TAB PO SCH (09:00)
[2022-12-24] MEDS ORDERED: Aspirin 81 mg Enteric Coated Tablet PO SCH (09:00)
[2022-12-24] MEDS: Mometasone/Formoterol 200/5 60 PUFF INH SCH ×2 (10:15→18:48)
[2022-12-24] MEDS: Heparin 5,000 UNITS/ML VIAL SC SCH ×3 (10:29→23:05)
[2022-12-24] MEDS: Folic Acid/Vit B Comp W-C PO SCH (10:29)
[2022-12-24 17:15] VITALS: BP 187/86; TEMP 97.5
[2022-12-24] MEDS: Atorvastatin Calcium 40 MG TAB PO SCH (23:04)
== END 2022-12-24 19:45 | DRG 637 ==
LOC: CSHERS 16:58 → CSHTELE 20:14 → OBSVTOIN 12-21 08:37
PROVIDERS: ADMIT Student in an Organized Health Care Education/Training Program; ATTEND Family Medicine
DX: E11.649 Type 2 diabetes mellitus with hypoglycemia without coma (principal); G93.41 Metabolic encephalopathy; I63.9 Cerebral infarction, unspecified; I13.2 Hypertensive heart and chronic kidney disease with heart failure and with stage 5 chronic kidney disease, or end stage renal disease; I50.32 Chronic diastolic (congestive) heart failure; N18.6 End stage renal disease; E78.5 Hyperlipidemia, unspecified; E11.22 Type 2 diabetes mellitus with diabetic chronic kidney disease; E11.42 Type 2 diabetes mellitus with diabetic polyneuropathy; I25.10 Atherosclerotic heart disease of native coronary artery without angina pectoris; T46.5X5A Adverse effect of other antihypertensive drugs, initial encounter; R53.81 Other malaise; I35.0 Nonrheumatic aortic (valve) stenosis; J44.9 Chronic obstructive pulmonary disease, unspecified; R00.2 Palpitations; I27.20 Pulmonary hypertension, unspecified; I95.2 Hypotension due to drugs; E03.9 Hypothyroidism, unspecified; T38.3X5A Adverse effect of insulin and oral hypoglycemic [antidiabetic] drugs, initial encounter; D63.1 Anemia in chronic kidney disease; E88.09 Other disorders of plasma-protein metabolism, not elsewhere classified; Z98.51 Tubal ligation status; Z80.1 Family history of malignant neoplasm of trachea, bronchus and lung; Z79.899 Other long term (current) drug therapy; Z79.4 Long term (current) use of insulin; I25.2 Old myocardial infarction; Z99.2 Dependence on renal dialysis; Z79.890 Hormone replacement therapy; Z79.02 Long term (current) use of antithrombotics/antiplatelets; Z79.82 Long term (current) use of aspirin; Z98.41 Cataract extraction status, right eye; Z98.42 Cataract extraction status, left eye; Z86.73 Personal history of transient ischemic attack (TIA), and cerebral infarction without residual deficits
CPT/HCPCS: 36415; 36416; 51701; 70450; 70496; 70498; 70551; 71045; 80048; 80053; 80061; 81003; 81015; 83036; 83605; 83735; 84443; 85025; 87040; 87086; 90935; 93005; 93010; 93306; 94664; 94760; 96365; 96372; 96375; G0257; G0378; J0696; J1644; J1815; J3490; P9047; Q9967; U0002

== ENCOUNTER 2023-04-14 12:20 | Inpatient (IN) | payer OTHER, MEDICARE ==
[2023-04-14] MEDS ORDERED: traMADol HCl 50 MG TAB ONE (13:32)
[2023-04-14] MEDS ORDERED: Morphine 4 MG/ML VIAL ONE ×2 (14:53→17:57)
[2023-04-14] MEDS ORDERED: Ondansetron PF 4 MG/2 ML Vial ONE (17:57)
[2023-04-14 18:25] LABS: #Eosinphils 0.1 10x3/uL (0.0-0.5); #Monocytes 0.9 10x3/uL (0.0-1.1); #Neutrophils 12.2 10x3/uL (1.5-8.4); %Basophils 0.3 % (0.0-2.0); %Eosinophils 0.8 % (0.0-6.0); %Lymphocytes 5.9 % (18.0-47.0); %Monocytes 6.6 % (0.0-10.0); %Neutrophils 85.8 % (40.0-75.0); Hematocrit 37.1 % (34.9-44.5); Mean Corpuscular HGB CONC 32.3 g/dL (32.0-36.0); Mean Corpuscular Hemoglobin 28.2 pg (27.0-33.0); Mean Corpuscular Volume 87.3 fl (81.6-98.3); Mean Platelet Volume 9.8 fl (7.4-10.4); Platelet Count 258 10x3/uL (150-450); Red Blood Cell (RBC) Count 4.25 10x6/uL (3.90-5.03); White Blood Cell (WBC) Count 14.2 10x3/uL (3.5-10.5)
[2023-04-14 18:38] LABS: ALT (SGPT) Less than 7 U/L (8-55); AST (SGOT) 17 U/L (5-34); Albumin 3.5 g/dL (3.4-4.8); Alkaline Phosphatase 177 U/L (40-110); Anion Gap 21 mmol/L (10-20); BUN (Urea Nitrogen) 40 mg/dL (9.8-20.1); Bilirubin, Total 0.6 mg/dL (0.2-1.2); Calc. Creatinine Clearance 0 mL/min (70-130); Calcium 8.6 mg/dL (7.8-10.44); Carbon Dioxide 28 mmol/L (23-31); Chloride 97 mmol/L (98-107); Estimated GFR 4; Globulin 2.9 g/dL (2.4-3.5); Glucose 215 mg/dL (83-110); Potassium 4.3 mmol/L (3.5-5.1); Protein, Total 6.4 g/dL (5.8-8.1); Sodium 142 mmol/L (136-145)
[2023-04-14] MEDS ORDERED: HumaLOG 300 UNITS/3 ML VIAL SC PRN (18:53)
[2023-04-14] MEDS ORDERED: Glucagon 1 MG/ML KIT IM PRN (18:53)
[2023-04-14] MEDS ORDERED: Dextrose 5% in Water 1,000 ML IV PRN (18:53)
[2023-04-14] MEDS ORDERED: Dextrose 50% Abboject 50 ML SYRINGE SLOW IVP PRN (18:53)
[2023-04-14 19:14] LABS: Lactic Acid 0.8 mmol/L (0.5-2.2)
[2023-04-14 19:22] LABS: Actual Bicarbonate (HCO3v) 27.2 mEq/L (22-28); Base Excess 3.4 mEq/L (-2 - +2); Puncture Site Other Site; pH (venous) 7.462 (7.32-7.43)
[2023-04-15] MEDS ORDERED: traMADol HCl 50 MG TAB PO SCH (00:30)
[2023-04-15] MEDS ORDERED: Acetaminophen 650 MG/20.3 ML UDCUP PO PRN (00:30)
[2023-04-15] MEDS: cloNIDine 0.1 MG TAB PO SCH ×3 (00:40→23:33)
[2023-04-15] MEDS: Amlodipine 5 MG TAB PO SCH ×3 (00:41→23:33)
[2023-04-15] MEDS: Atorvastatin Calcium 40 MG TAB PO SCH ×2 (00:41→20:47)
[2023-04-15] MEDS: Heparin 5,000 UNITS/ML VIAL SC SCH ×4 (00:43→20:47)
[2023-04-15 01:40] LABS: #Basophils 0.1 10x3/uL (0.0-0.2); #Eosinphils 0.1 10x3/uL (0.0-0.5); #Monocytes 0.8 10x3/uL (0.0-1.1); #Neutrophils 9.4 10x3/uL (1.5-8.4); %Basophils 0.6 % (0.0-2.0); %Lymphocytes 7.1 % (18.0-47.0); %Neutrophils 83.9 % (40.0-75.0); Hemoglobin 12.1 g/dL (12.0-15.5); Mean Corpuscular HGB CONC 31.8 g/dL (32.0-36.0); Mean Corpuscular Hemoglobin 28.3 pg (27.0-33.0); Mean Corpuscular Volume 88.8 fl (81.6-98.3); Mean Platelet Volume 9.4 fl (7.4-10.4); Platelet Count 211 10x3/uL (150-450); RBC Distribution Width 13.9 % (11.5-14.5); Red Blood Cell (RBC) Count 4.28 10x6/uL (3.90-5.03); White Blood Cell (WBC) Count 11.3 10x3/uL (3.5-10.5)
[2023-04-15 01:55] LABS: ALT (SGPT) Less than 7 U/L (8-55); AST (SGOT) 18 U/L (5-34); Albumin 3.6 g/dL (3.4-4.8); Alkaline Phosphatase 139 U/L (40-110); Anion Gap 20 mmol/L (10-20); BUN (Urea Nitrogen) 15 mg/dL (9.8-20.1); Bilirubin, Total 0.7 mg/dL (0.2-1.2); Calc. Creatinine Clearance 0 mL/min (70-130); Calcium 8.9 mg/dL (7.8-10.44); Carbon Dioxide 28 mmol/L (23-31); Chloride 98 mmol/L (98-107); Estimated GFR 8; Globulin 2.8 g/dL (2.4-3.5); Glucose 214 mg/dL (83-110); Potassium 3.6 mmol/L (3.5-5.1); Protein, Total 6.4 g/dL (5.8-8.1); Sodium 142 mmol/L (136-145)
[2023-04-15 02:59] VITALS: BMI 26.2
[2023-04-15] MEDS: Levothyroxine Sodium 100 MCG TAB PO SCH (06:06)
[2023-04-15] MEDS: HumaLOG 300 UNITS/3 ML VIAL SC PRN (06:07)
[2023-04-15] MEDS ORDERED: B COMPLEX PO SCH (09:00)
[2023-04-15] MEDS ORDERED: [UNRECOGNIZED DRUG - OTHER] PO SCH (09:00)
[2023-04-15] MEDS ORDERED: FOLIC ACID PO SCH (09:00)
[2023-04-15] MEDS: Carvedilol 25 MG TAB PO SCH ×2 (09:39→16:34)
[2023-04-15] MEDS: Folic Acid/Vit B Comp W-C PO SCH (09:41)
[2023-04-15] MEDS: Minoxidil 2.5 MG TAB PO SCH (09:41)
[2023-04-15] MEDS: Clopidogrel Bisulfate 75 MG TAB PO SCH (09:41)
[2023-04-15] MEDS: Aspirin 81 mg Enteric Coated Tablet PO SCH (09:41)
[2023-04-15] MEDS: Mometasone/Formoterol 200/5 60 PUFF INH SCH ×2 (11:36→20:26)
[2023-04-15] MEDS: cefTRIAXone\\ROCEPHIN 1 GM in Sodium Chloride 0.9% 100 ML IVPB SCH (11:54)
[2023-04-15] MEDS: traMADol HCl 50 MG TAB PO PRN (12:06)
[2023-04-15] MEDS ORDERED: Sodium Chloride 0.9% 1,000 ML IV SCH (12:15)
[2023-04-15] MEDS ORDERED: Ondansetron ODT 4 MG TAB PO PRN (15:30)
[2023-04-15] MEDS: HYDROcodone/Acetaminophen 5/325 mg Tablet PO PRN ×2 (16:33→21:22)
[2023-04-16] MEDS: HYDROcodone/Acetaminophen 5/325 mg Tablet PO PRN ×3 (05:35→17:21)
[2023-04-16] MEDS: Levothyroxine Sodium 100 MCG TAB PO SCH (05:36)
[2023-04-16] MEDS: traMADol HCl 50 MG TAB PO PRN (09:40)
[2023-04-16] MEDS: Minoxidil 2.5 MG TAB PO SCH (09:40)
[2023-04-16] MEDS: Carvedilol 25 MG TAB PO SCH ×2 (09:41→17:22)
[2023-04-16] MEDS: Folic Acid/Vit B Comp W-C PO SCH (09:41)
[2023-04-16] MEDS: cloNIDine 0.1 MG TAB PO SCH ×2 (09:41→20:40)
[2023-04-16] MEDS: Clopidogrel Bisulfate 75 MG TAB PO SCH (09:41)
[2023-04-16] MEDS: Aspirin 81 mg Enteric Coated Tablet PO SCH (09:42)
[2023-04-16] MEDS: Amlodipine 5 MG TAB PO SCH ×2 (09:42→20:41)
[2023-04-16] MEDS: cefTRIAXone\\ROCEPHIN 1 GM in Sodium Chloride 0.9% 100 ML IVPB SCH (09:43)
[2023-04-16] MEDS: Heparin 5,000 UNITS/ML VIAL SC SCH ×2 (09:59→20:40)
[2023-04-16] MEDS: Mometasone/Formoterol 200/5 60 PUFF INH SCH ×2 (10:15→20:46)
[2023-04-16] MEDS: HumaLOG 300 UNITS/3 ML VIAL SC PRN (13:08)
[2023-04-16] MEDS: Atorvastatin Calcium 40 MG TAB PO SCH (20:40)
[2023-04-17 04:10] LABS: #Basophils 0.1 10x3/uL (0.0-0.2); #Eosinphils 0.3 10x3/uL (0.0-0.5); #Monocytes 1.3 10x3/uL (0.0-1.1); %Eosinophils 3.1 % (0.0-6.0); %Lymphocytes 10.9 % (18.0-47.0); %Monocytes 13.4 % (0.0-10.0); %Neutrophils 71.2 % (40.0-75.0); Hematocrit 36.6 % (34.9-44.5); Hemoglobin 11.3 g/dL (12.0-15.5); Mean Corpuscular HGB CONC 30.9 g/dL (32.0-36.0); Mean Corpuscular Hemoglobin 28.1 pg (27.0-33.0); Mean Platelet Volume 10.2 fl (7.4-10.4); Platelet Count 213 10x3/uL (150-450); RBC Distribution Width 13.8 % (11.5-14.5); Red Blood Cell (RBC) Count 4.02 10x6/uL (3.90-5.03); White Blood Cell (WBC) Count 9.9 10x3/uL (3.5-10.5)
[2023-04-17 04:21] LABS: Anion Gap 24 mmol/L (10-20); BUN (Urea Nitrogen) 41 mg/dL (9.8-20.1); Calc. Creatinine Clearance 5 mL/min (70-130); Calcium 8.4 mg/dL (7.8-10.44); Carbon Dioxide 22 mmol/L (23-31); Chloride 95 mmol/L (98-107); Estimated GFR 4; Glucose 121 mg/dL (83-110); Potassium 4.5 mmol/L (3.5-5.1); Sodium 136 mmol/L (136-145)
[2023-04-17] MEDS: Levothyroxine Sodium 100 MCG TAB PO SCH (05:55)
[2023-04-17] MEDS: HYDROcodone/Acetaminophen 5/325 mg Tablet PO PRN ×2 (05:55→20:20)
[2023-04-17] MEDS: Mometasone/Formoterol 200/5 60 PUFF INH SCH ×2 (08:02→19:30)
[2023-04-17] MEDS ORDERED: HYDROcodone/Acetaminophen 5/325 mg Tablet PO SCH (08:30)
[2023-04-17] MEDS: Carvedilol 25 MG TAB PO SCH ×2 (09:35→17:00)
[2023-04-17] MEDS: Clopidogrel Bisulfate 75 MG TAB PO SCH (09:35)
[2023-04-17] MEDS: cloNIDine 0.1 MG TAB PO SCH ×2 (09:35→20:19)
[2023-04-17] MEDS: Amlodipine 5 MG TAB PO SCH ×2 (09:35→20:19)
[2023-04-17] MEDS: Aspirin 81 mg Enteric Coated Tablet PO SCH (09:35)
[2023-04-17] MEDS: Folic Acid/Vit B Comp W-C PO SCH (09:36)
[2023-04-17] MEDS: Heparin 5,000 UNITS/ML VIAL SC SCH ×2 (09:36→20:22)
[2023-04-17] MEDS: cefTRIAXone\\ROCEPHIN 1 GM in Sodium Chloride 0.9% 100 ML IVPB SCH (12:05)
[2023-04-17] MEDS: Minoxidil 2.5 MG TAB PO SCH (19:25)
[2023-04-17] MEDS: Atorvastatin Calcium 40 MG TAB PO SCH (20:21)
[2023-04-18] MEDS: Levothyroxine Sodium 100 MCG TAB PO SCH (05:52)
[2023-04-18] MEDS: Mometasone/Formoterol 200/5 60 PUFF INH SCH (07:20)
[2023-04-18 08:12] VITALS: TEMP 97.7
[2023-04-18 12:41] VITALS: BP 166/74
[2023-04-18] MEDS: Carvedilol 25 MG TAB PO SCH (18:27)
[2023-04-18] MEDS: Amlodipine 5 MG TAB PO SCH (18:27)
[2023-04-18] MEDS: Aspirin 81 mg Enteric Coated Tablet PO SCH (18:27)
[2023-04-18] MEDS: cloNIDine 0.1 MG TAB PO SCH (18:28)
[2023-04-18] MEDS: Folic Acid/Vit B Comp W-C PO SCH (18:28)
[2023-04-18] MEDS: Clopidogrel Bisulfate 75 MG TAB PO SCH (18:28)
[2023-04-18] MEDS: Minoxidil 2.5 MG TAB PO SCH (18:28)
[2023-04-18] MEDS: Heparin 5,000 UNITS/ML VIAL SC SCH (18:28)
== END 2023-04-18 17:50 | DRG 535 ==
LOC: CSHERS 12:20 → CSHTELE 23:44
PROVIDERS: ADMIT Internal Medicine; ATTEND Hospitalist
PROC: 4A043R1 Measurement of Venous Saturation, Peripheral, Percutaneous Approach (ICD-10-PCS; principal; 2023-04-14)
DX: S32.591A Other specified fracture of right pubis, initial encounter for closed fracture (principal); N18.6 End stage renal disease; I13.2 Hypertensive heart and chronic kidney disease with heart failure and with stage 5 chronic kidney disease, or end stage renal disease; I50.30 Unspecified diastolic (congestive) heart failure; W01.0XXA Fall on same level from slipping, tripping and stumbling without subsequent striking against object, initial encounter; E11.22 Type 2 diabetes mellitus with diabetic chronic kidney disease; J45.909 Unspecified asthma, uncomplicated; E03.9 Hypothyroidism, unspecified; Z79.899 Other long term (current) drug therapy; Z79.82 Long term (current) use of aspirin; D63.1 Anemia in chronic kidney disease; D72.829 Elevated white blood cell count, unspecified; I25.2 Old myocardial infarction
CPT/HCPCS: 36415; 36416; 71045; 80048; 80053; 82010; 82805; 83605; 84145; 85025; 87040; 90935; 94760; 96372; 96374; 96375; G0257; J0696; J1644; J1815; J2270; J2405; J3490; J7050

== ENCOUNTER 2023-06-25 23:38 | Emergency (ER) | payer MEDICARE, OTHER ==
[2023-06-26 00:39] LABS: ALT (SGPT) Less than 7 U/L (8-55); AST (SGOT) 14 U/L (5-34); Albumin 3.4 g/dL (3.4-4.8); Alkaline Phosphatase 205 U/L (40-110); Anion Gap 21 mmol/L (10-20); BUN (Urea Nitrogen) 36 mg/dL (9.8-20.1); Bilirubin, Total 0.6 mg/dL (0.2-1.2); Calc. Creatinine Clearance 0 mL/min (70-130); Calcium 7.9 mg/dL (7.8-10.44); Carbon Dioxide 22 mmol/L (23-31); Chloride 100 mmol/L (98-107); Estimated GFR 6; Globulin 2.8 g/dL (2.4-3.5); Glucose 223 mg/dL (83-110); Potassium 4.7 mmol/L (3.5-5.1); Protein, Total 6.2 g/dL (5.8-8.1); Sodium 138 mmol/L (136-145)
[2023-06-26 00:40] LABS: Troponin I 0.049 ng/mL (< 0.028)
[2023-06-26 00:41] LABS: #Basophils 0.1 10x3/uL (0.0-0.2); #Eosinphils 1.2 10x3/uL (0.0-0.5); #Monocytes 0.5 10x3/uL (0.0-1.1); #Neutrophils 4.4 10x3/uL (1.5-8.4); %Basophils 1.4 % (0.0-2.0); %Lymphocytes 14.1 % (18.0-47.0); %Monocytes 7.4 % (0.0-10.0); %Neutrophils 60.8 % (40.0-75.0); Hematocrit 24.4 % (34.9-44.5); Hemoglobin 7.7 g/dL (12.0-15.5); Mean Corpuscular HGB CONC 31.6 g/dL (32.0-36.0); Mean Corpuscular Hemoglobin 29.7 pg (27.0-33.0); Mean Corpuscular Volume 94.2 fl (81.6-98.3); Mean Platelet Volume 10.3 fl (7.4-10.4); Platelet Count 230 10x3/uL (150-450); RBC Distribution Width 14.8 % (11.5-14.5); Red Blood Cell (RBC) Count 2.59 10x6/uL (3.90-5.03); White Blood Cell (WBC) Count 7.2 10x3/uL (3.5-10.5)
== END 2023-06-26 02:01 | disposition home or self-care (01) ==
LOC: CSHERS 23:38
DX: R06.02 Shortness of breath (principal); E11.9 Type 2 diabetes mellitus without complications; E03.9 Hypothyroidism, unspecified; I10 Essential (primary) hypertension; Z86.73 Personal history of transient ischemic attack (TIA), and cerebral infarction without residual deficits; J44.9 Chronic obstructive pulmonary disease, unspecified; Z79.899 Other long term (current) drug therapy; Z79.82 Long term (current) use of aspirin
CPT/HCPCS: 71045; 80053; 83880; 84484; 85025; 93005

== ENCOUNTER 2023-07-09 21:42 | Inpatient (IN) | payer MEDICARE, OTHER ==
[2023-07-09 23:02] LABS: #Basophils 0.1 10x3/uL (0.0-0.2); #Eosinphils 0.7 10x3/uL (0.0-0.5); #Monocytes 0.8 10x3/uL (0.0-1.1); #Neutrophils 9.7 10x3/uL (1.5-8.4); %Eosinophils 5.5 % (0.0-6.0); %Lymphocytes 7.7 % (18.0-47.0); %Monocytes 6.3 % (0.0-10.0); %Neutrophils 79.3 % (40.0-75.0); Hematocrit 29.3 % (34.9-44.5); Hemoglobin 9.5 g/dL (12.0-15.5); Mean Corpuscular HGB CONC 32.4 g/dL (32.0-36.0); Mean Corpuscular Hemoglobin 29.3 pg (27.0-33.0); Mean Corpuscular Volume 90.4 fl (81.6-98.3); Mean Platelet Volume 9.7 fl (7.4-10.4); Platelet Count 181 10x3/uL (150-450); RBC Distribution Width 13.9 % (11.5-14.5); Red Blood Cell (RBC) Count 3.24 10x6/uL (3.90-5.03); White Blood Cell (WBC) Count 12.3 10x3/uL (3.5-10.5)
[2023-07-09 23:17] LABS: ALT (SGPT) 7 U/L (8-55); AST (SGOT) 14 U/L (5-34); Albumin 3.7 g/dL (3.4-4.8); Alkaline Phosphatase 119 U/L (40-110); Anion Gap 28 mmol/L (10-20); BUN (Urea Nitrogen) 65 mg/dL (9.8-20.1); Calc. Creatinine Clearance 0 mL/min (70-130); Calcium 8.7 mg/dL (7.8-10.44); Carbon Dioxide 21 mmol/L (23-31); Chloride 97 mmol/L (98-107); Estimated GFR 3; Globulin 3.2 g/dL (2.4-3.5); Glucose 167 mg/dL (83-110); Potassium 5.9 mmol/L (3.5-5.1); Protein, Total 6.9 g/dL (5.8-8.1); Sodium 140 mmol/L (136-145)
[2023-07-09] MEDS ORDERED: Sodium Bicarb 50 MEQ/50 ML Abboject 8.4% SYRINGE ONE (23:51)
[2023-07-09] MEDS ORDERED: Calcium Chloride 1 GM/10 ML Abboject SYRINGE ONE (23:51)
[2023-07-09] MEDS ORDERED: Dextrose 50% Abboject 50 ML SYRINGE ONE (23:52)
[2023-07-09] MEDS ORDERED: Insulin Regular 300 UNITS/3 ML VIAL ONE (23:52)
[2023-07-10] MEDS ORDERED: LevoFLOXacin 500 mg/D5W 100 ML BAG ONE (00:56)
[2023-07-10] MEDS ORDERED: Ipratropium/Albuterol 3 ML NEB NEB PRN (01:06)
[2023-07-10] MEDS ORDERED: Cefepime 1 GM in Sodium Chloride 0.9% 100 ML IVPB SCH ×2 (01:15→06:30)
[2023-07-10] MEDS ORDERED: Vancomycin 1.5 GRAM/300 ML BAG 1.5 GM in Premix 1 BAG IVPB SCH ×2 (01:30→06:30)
[2023-07-10 01:54] LABS: Troponin I 0.055 ng/mL (< 0.028)
[2023-07-10 02:19] LABS: Magnesium 2.1 mg/dL (1.6-2.6); Phosphorus 8.9 mg/dL (2.3-4.7)
[2023-07-10 03:37] LABS: #Basophils 0.1 10x3/uL (0.0-0.2); #Eosinphils 0.3 10x3/uL (0.0-0.5); #Monocytes 0.8 10x3/uL (0.0-1.1); #Neutrophils 10.7 10x3/uL (1.5-8.4); %Eosinophils 2.1 % (0.0-6.0); %Monocytes 6.6 % (0.0-10.0); Hematocrit 26.4 % (34.9-44.5); Hemoglobin 8.5 g/dL (12.0-15.5); Mean Corpuscular HGB CONC 32.2 g/dL (32.0-36.0); Mean Corpuscular Hemoglobin 29.1 pg (27.0-33.0); Mean Corpuscular Volume 90.4 fl (81.6-98.3); Mean Platelet Volume 10.2 fl (7.4-10.4); Platelet Count 174 10x3/uL (150-450); Red Blood Cell (RBC) Count 2.92 10x6/uL (3.90-5.03); White Blood Cell (WBC) Count 12.8 10x3/uL (3.5-10.5)
[2023-07-10] MEDS ORDERED: Ondansetron PF 4 MG/2 ML Vial IVP SCH (05:30)
[2023-07-10 05:52] VITALS: BMI 24.1
[2023-07-10 06:53] LABS: Troponin I 0.091 ng/mL (< 0.028)
[2023-07-10 07:23] LABS: ALT (SGPT) Less than 7 U/L (8-55); AST (SGOT) 14 U/L (5-34); Albumin 3.5 g/dL (3.4-4.8); Alkaline Phosphatase 100 U/L (40-110); Anion Gap 20 mmol/L (10-20); BUN (Urea Nitrogen) 23 mg/dL (9.8-20.1); Bilirubin, Total 1.2 mg/dL (0.2-1.2); Calc. Creatinine Clearance 10 mL/min (70-130); Carbon Dioxide 27 mmol/L (23-31); Chloride 98 mmol/L (98-107); Estimated GFR 9; Glucose 120 mg/dL (83-110); Potassium 3.7 mmol/L (3.5-5.1); Protein, Total 6.5 g/dL (5.8-8.1); Sodium 141 mmol/L (136-145)
[2023-07-10] MEDS: Budesonide 0.5 MG/2 ML NEB NEB SCH ×2 (07:25→19:10)
[2023-07-10] MEDS: Arformoterol 15 MCG/2 ML NEB NEB SCH ×2 (07:30→19:09)
[2023-07-10] MEDS: Heparin 5,000 UNITS/ML VIAL SC SCH ×3 (08:48→22:00)
[2023-07-10] MEDS: Pantoprazole 40 MG VIAL IVP SCH (08:49)
[2023-07-10] MEDS ORDERED: cloNIDine 0.1 MG TAB PO SCH (11:00)
[2023-07-10] MEDS ORDERED: Carvedilol 25 MG TAB PO SCH (11:00)
[2023-07-10] MEDS ORDERED: Amlodipine 5 MG TAB PO SCH (11:00)
[2023-07-10] MEDS ORDERED: hydrALAZINE 20 MG/ML VIAL SLOW IVP SCH (14:00)
[2023-07-10] MEDS ORDERED: Acetaminophen 325 MG TAB PO PRN ×2 (16:48→17:00)
[2023-07-10] MEDS ORDERED: Ondansetron PF 4 MG/2 ML Vial IVP PRN (16:49)
[2023-07-10] MEDS: Ondansetron PF 4 MG/2 ML Vial IVP PRN ×2 (17:23→23:00)
[2023-07-10] MEDS: Carvedilol 25 MG TAB PO SCH (19:53)
[2023-07-10] MEDS: cloNIDine 0.1 MG TAB PO SCH (19:54)
[2023-07-10] MEDS: Amlodipine 5 MG TAB PO SCH (19:55)
[2023-07-10] MEDS ORDERED: Morphine 2 MG/ML VIAL SLOW IVP SCH (21:00)
[2023-07-11] MEDS ORDERED: Cefepime 1 GM in Sodium Chloride 0.9% 100 ML IVPB SCH ×2 (02:00→06:00)
[2023-07-11] MEDS: Budesonide 0.5 MG/2 ML NEB NEB SCH (07:15)
[2023-07-11] MEDS: Arformoterol 15 MCG/2 ML NEB NEB SCH (07:15)
[2023-07-11] MEDS: cloNIDine 0.1 MG TAB PO SCH (08:23)
[2023-07-11] MEDS: Pantoprazole 40 MG VIAL IVP SCH (08:23)
[2023-07-11] MEDS: Heparin 5,000 UNITS/ML VIAL SC SCH ×2 (08:23→14:40)
[2023-07-11] MEDS: Carvedilol 25 MG TAB PO SCH (08:23)
[2023-07-11] MEDS: Amlodipine 5 MG TAB PO SCH (08:24)
[2023-07-11] MEDS ORDERED: Levothyroxine Sodium 100 MCG TAB PO SCH (09:00)
[2023-07-11] MEDS ORDERED: Aspirin 81 mg Enteric Coated Tablet PO SCH (09:00)
[2023-07-11] MEDS ORDERED: Folic Acid/Vit B Comp W-C PO SCH (09:00)
[2023-07-11 09:40] LABS: #Basophils 0.1 10x3/uL (0.0-0.2); #Eosinphils 0.4 10x3/uL (0.0-0.5); #Monocytes 0.8 10x3/uL (0.0-1.1); #Neutrophils 8.1 10x3/uL (1.5-8.4); %Basophils 1.1 % (0.0-2.0); %Eosinophils 3.6 % (0.0-6.0); %Lymphocytes 7.4 % (18.0-47.0); %Monocytes 8.1 % (0.0-10.0); %Neutrophils 79.4 % (40.0-75.0); Hematocrit 26.6 % (34.9-44.5); Hemoglobin 8.3 g/dL (12.0-15.5); Mean Corpuscular HGB CONC 31.2 g/dL (32.0-36.0); Platelet Count 157 10x3/uL (150-450); Red Blood Cell (RBC) Count 2.86 10x6/uL (3.90-5.03); White Blood Cell (WBC) Count 10.2 10x3/uL (3.5-10.5)
[2023-07-11 10:09] LABS: Anion Gap 21 mmol/L (10-20); BUN (Urea Nitrogen) 27 mg/dL (9.8-20.1); Calc. Creatinine Clearance 9 mL/min (70-130); Calcium 8.4 mg/dL (7.8-10.44); Carbon Dioxide 25 mmol/L (23-31); Chloride 98 mmol/L (98-107); Estimated GFR 8; Glucose 172 mg/dL (83-110); Potassium 4.9 mmol/L (3.5-5.1); Sodium 139 mmol/L (136-145)
[2023-07-11 15:52] VITALS: BP 112/73; TEMP 97.4
[2023-07-11] MEDS ORDERED: Atorvastatin Calcium 40 MG TAB PO SCH (21:00)
[2023-07-12] MEDS ORDERED: LevoFLOXacin 500 mg/D5W 500 MG in Premix 1 BAG IVPB SCH (01:00)
[2023-07-12] MEDS ORDERED: Levothyroxine Sodium 100 MCG TAB PO SCH (06:00)
== END 2023-07-11 16:50 | disposition home or self-care (01) | DRG 640 ==
LOC: CSHERS 21:42 → CSHICU 07-10 00:10
PROVIDERS: ADMIT Family Medicine; ATTEND Family Medicine
PROC: 06HY33Z Insertion of Infusion Device into Lower Vein, Percutaneous Approach (ICD-10-PCS; principal; 2023-07-10)
PROC: 5A09357 Assistance with Respiratory Ventilation, Less than 24 Consecutive Hours, Continuous Positive Airway Pressure (ICD-10-PCS; 2023-07-10)
DX: E87.5 Hyperkalemia (principal); J18.9 Pneumonia, unspecified organism; N18.6 End stage renal disease; J96.01 Acute respiratory failure with hypoxia; I12.0 Hypertensive chronic kidney disease with stage 5 chronic kidney disease or end stage renal disease; Z79.899 Other long term (current) drug therapy; Z79.4 Long term (current) use of insulin; Z79.82 Long term (current) use of aspirin; E11.9 Type 2 diabetes mellitus without complications; E03.9 Hypothyroidism, unspecified; J44.9 Chronic obstructive pulmonary disease, unspecified; Z98.41 Cataract extraction status, right eye; Z98.51 Tubal ligation status; Z98.42 Cataract extraction status, left eye; Z99.2 Dependence on renal dialysis; I51.7 Cardiomegaly; Z79.01 Long term (current) use of anticoagulants; D63.1 Anemia in chronic kidney disease; I35.0 Nonrheumatic aortic (valve) stenosis
CPT/HCPCS: 36415; 36416; 71045; 80048; 80053; 83735; 83880; 84100; 84145; 84484; 85025; 87040; 90935; 93005; 93010; 93306; 94640; 94660; 94760; 94762; C9113; G0257; J0360; J0692; J1644; J1815; J1956; J2272; J2405; J3370; J3490; J7620; J7626; J7999

== ENCOUNTER 2023-07-31 03:47 | Inpatient (IN) | payer MEDICARE, OTHER ==
[2023-07-31 04:41] LABS: #Basophils 0.1 10x3/uL (0.0-0.2); #Eosinphils 0.9 10x3/uL (0.0-0.5); #Monocytes 0.6 10x3/uL (0.0-1.1); #Neutrophils 8.3 10x3/uL (1.5-8.4); %Basophils 1.3 % (0.0-2.0); %Eosinophils 8.3 % (0.0-6.0); %Lymphocytes 9.3 % (18.0-47.0); %Monocytes 5.7 % (0.0-10.0); %Neutrophils 75.1 % (40.0-75.0); Hematocrit 27.7 % (34.9-44.5); Hemoglobin 8.7 g/dL (12.0-15.5); Mean Corpuscular HGB CONC 31.4 g/dL (32.0-36.0); Mean Corpuscular Hemoglobin 28.9 pg (27.0-33.0); Mean Platelet Volume 9.9 fl (7.4-10.4); Platelet Count 259 10x3/uL (150-450); RBC Distribution Width 16.3 % (11.5-14.5); Red Blood Cell (RBC) Count 3.01 10x6/uL (3.90-5.03)
[2023-07-31 04:53] LABS: Actual Bicarbonate (HCO3v) 22.5 mEq/L (22-28); Analyzer IN Cardio CS ER; Base Excess 1.6 mEq/L (-2 - +2); Calcium, Ionized (venous) 0.88 mmol/L (1.16-1.32); Chloride (VBG) 101 mmol/L (98-106); Hematocrit-VBG 30 % (36.0-47.0); Hemoglobin (Hb) 10.2 g/dL (11.7-16.1); Potassium (VBG) 4.21 mmol/L (3.70-5.30); Puncture Site Other Site; RapidComm Collect By CBN; Sodium 138 mmol/L (133-146); pH (venous) 7.589 (7.32-7.43)
[2023-07-31 04:54] LABS: ALT (SGPT) 12 U/L (8-55); AST (SGOT) 18 U/L (5-34); Albumin 3.6 g/dL (3.4-4.8); Alkaline Phosphatase 146 U/L (40-110); Anion Gap 21 mmol/L (10-20); BUN (Urea Nitrogen) 27 mg/dL (9.8-20.1); Calc. Creatinine Clearance 0 mL/min (70-130); Calcium 8.7 mg/dL (7.8-10.44); Carbon Dioxide 23 mmol/L (23-31); Chloride 101 mmol/L (98-107); Estimated GFR 5; Globulin 2.7 g/dL (2.4-3.5); Glucose 223 mg/dL (83-110); Potassium 4.4 mmol/L (3.5-5.1); Protein, Total 6.3 g/dL (5.8-8.1); Sodium 141 mmol/L (136-145)
[2023-07-31] MEDS ORDERED: Ipratropium/Albuterol 3 ML NEB ONE (04:55)
[2023-07-31 04:58] LABS: Troponin I 0.044 ng/mL (< 0.028)
[2023-07-31 05:23] LABS: SARS-CoV-2 NAA Rapid Test Not Detected (NotDetected)
[2023-07-31] MEDS ORDERED: Acetaminophen 325 MG TAB PO PRN (05:35)
[2023-07-31] MEDS ORDERED: Dextrose 5% in Water 1,000 ML IV PRN (05:35)
[2023-07-31] MEDS ORDERED: Glucagon 1 MG/ML KIT IM PRN (05:35)
[2023-07-31] MEDS ORDERED: Calcium Carbonate 500 MG ChewTAB PO PRN (05:35)
[2023-07-31] MEDS ORDERED: Guaifenesin DM 100-10/5 ML UDCUP PO PRN (05:35)
[2023-07-31] MEDS ORDERED: Ondansetron PF 4 MG/2 ML Vial IVP PRN (05:35)
[2023-07-31] MEDS ORDERED: Dextrose 50% Abboject 50 ML SYRINGE SLOW IVP PRN (05:35)
[2023-07-31] MEDS ORDERED: Nitroglycerin 2% Ointment 1 INCH/1 GM Packet ONE (05:43)
[2023-07-31] MEDS ORDERED: Ipratropium/Albuterol 3 ML NEB NEB PRN (05:44)
[2023-07-31 06:45] VITALS: BMI 20.7
[2023-07-31] MEDS ORDERED: Levothyroxine Sodium 100 MCG TAB PO SCH (08:00)
[2023-07-31] MEDS: Heparin 5,000 UNITS/ML VIAL SC SCH ×3 (08:13→19:34)
[2023-07-31] MEDS: Clopidogrel Bisulfate 75 MG TAB PO SCH (08:14)
[2023-07-31] MEDS: Aspirin 81 mg Enteric Coated Tablet PO SCH (08:14)
[2023-07-31] MEDS: HumaLOG 300 UNITS/3 ML VIAL SC PRN (08:57)
[2023-07-31 08:58] LABS: Troponin I 0.042 ng/mL (< 0.028)
[2023-07-31] MEDS ORDERED: Amlodipine 5 MG TAB PO SCH (09:00)
[2023-07-31] MEDS: Carvedilol 25 MG TAB PO SCH ×2 (09:15→19:34)
[2023-07-31] MEDS: Folic Acid/Vit B Comp W-C PO SCH (09:16)
[2023-07-31] MEDS: cloNIDine 0.1 MG TAB PO SCH ×2 (10:19→19:33)
[2023-07-31 14:11] LABS: Troponin I 0.037 ng/mL (< 0.028)
[2023-07-31] MEDS: Senokot S 8.6-50 MG TAB PO PRN (19:33)
[2023-07-31] MEDS: Atorvastatin Calcium 40 MG TAB PO SCH (19:34)
[2023-07-31] MEDS: Mometasone/Formoterol 200/5 60 PUFF INH SCH (19:39)
[2023-07-31] MEDS ORDERED: hydrALAZINE 20 MG/ML VIAL SLOW IVP PRN (19:58)
[2023-07-31] MEDS ORDERED: Dicyclomine 10 MG CAP PO SCH (20:00)
[2023-07-31] MEDS ORDERED: Pepto Bismol Chew TAB PO SCH (20:15)
[2023-07-31] MEDS ORDERED: Minoxidil 2.5 MG TAB PO SCH (21:00)
[2023-08-01 03:55] LABS: Anion Gap 15 mmol/L (10-20); BUN (Urea Nitrogen) 14 mg/dL (9.8-20.1); Calc. Creatinine Clearance 9 mL/min (70-130); Calcium 8.8 mg/dL (7.8-10.44); Carbon Dioxide 29 mmol/L (23-31); Chloride 101 mmol/L (98-107); Estimated GFR 10; Glucose 126 mg/dL (83-110); Potassium 4.5 mmol/L (3.5-5.1); Sodium 140 mmol/L (136-145)
[2023-08-01 04:15] LABS: #Basophils 0.1 10x3/uL (0.0-0.2); #Eosinphils 0.3 10x3/uL (0.0-0.5); #Monocytes 0.7 10x3/uL (0.0-1.1); #Neutrophils 6.5 10x3/uL (1.5-8.4); %Basophils 1.1 % (0.0-2.0); %Eosinophils 3.2 % (0.0-6.0); %Lymphocytes 11.1 % (18.0-47.0); %Monocytes 7.9 % (0.0-10.0); %Neutrophils 76.3 % (40.0-75.0); Hematocrit 25.3 % (34.9-44.5); Hemoglobin 8.1 g/dL (12.0-15.5); Mean Corpuscular Hemoglobin 29.5 pg (27.0-33.0); Mean Platelet Volume 10.1 fl (7.4-10.4); Platelet Count 205 10x3/uL (150-450); RBC Distribution Width 16.6 % (11.5-14.5); Red Blood Cell (RBC) Count 2.75 10x6/uL (3.90-5.03); White Blood Cell (WBC) Count 8.5 10x3/uL (3.5-10.5)
[2023-08-01] MEDS: Levothyroxine Sodium 100 MCG TAB PO SCH (06:00)
[2023-08-01] MEDS: Mometasone/Formoterol 200/5 60 PUFF INH SCH ×2 (07:00→18:30)
[2023-08-01] MEDS: Aspirin 81 mg Enteric Coated Tablet PO SCH (08:10)
[2023-08-01] MEDS: Carvedilol 25 MG TAB PO SCH ×2 (08:10→22:49)
[2023-08-01] MEDS: Amlodipine 10 MG TAB PO SCH (08:10)
[2023-08-01] MEDS: cloNIDine 0.1 MG TAB PO SCH ×2 (08:10→22:49)
[2023-08-01] MEDS: Clopidogrel Bisulfate 75 MG TAB PO SCH (08:10)
[2023-08-01] MEDS: Folic Acid/Vit B Comp W-C PO SCH (08:23)
[2023-08-01] MEDS: Minoxidil 2.5 MG TAB PO SCH (08:24)
[2023-08-01] MEDS ORDERED: EPOETIN ALFA-EPBX (ESRD) 10,000 UNITS/ML VIAL SC SCH (09:00)
[2023-08-01] MEDS: Heparin 5,000 UNITS/ML VIAL SC SCH ×3 (09:00→22:53)
[2023-08-01] MEDS: HumaLOG 300 UNITS/3 ML VIAL SC PRN (11:23)
[2023-08-01] MEDS: Heparin 10,000 UNITS/ 10 ML VIAL FS PRN (15:40)
[2023-08-01] MEDS: Atorvastatin Calcium 40 MG TAB PO SCH (22:49)
[2023-08-02] MEDS: Levothyroxine Sodium 100 MCG TAB PO SCH (05:57)
[2023-08-02] MEDS: Mometasone/Formoterol 200/5 60 PUFF INH SCH ×2 (08:20→19:55)
[2023-08-02] MEDS: Aspirin 81 mg Enteric Coated Tablet PO SCH (09:09)
[2023-08-02] MEDS: Amlodipine 10 MG TAB PO SCH (09:09)
[2023-08-02] MEDS: Clopidogrel Bisulfate 75 MG TAB PO SCH (09:10)
[2023-08-02] MEDS: cloNIDine 0.1 MG TAB PO SCH (09:10)
[2023-08-02] MEDS: Carvedilol 25 MG TAB PO SCH ×2 (09:10→23:00)
[2023-08-02] MEDS: Minoxidil 2.5 MG TAB PO SCH (09:11)
[2023-08-02] MEDS: Folic Acid/Vit B Comp W-C PO SCH (09:11)
[2023-08-02] MEDS: Heparin 5,000 UNITS/ML VIAL SC SCH ×3 (09:12→23:00)
[2023-08-02] MEDS ORDERED: cloNIDine 0.1 MG TAB PO PRN (12:33)
[2023-08-02] MEDS: Atorvastatin Calcium 40 MG TAB PO SCH (23:00)
[2023-08-02] MEDS: Senokot S 8.6-50 MG TAB PO PRN (23:11)
[2023-08-03] MEDS: Levothyroxine Sodium 100 MCG TAB PO SCH (06:44)
[2023-08-03] MEDS: Mometasone/Formoterol 200/5 60 PUFF INH SCH (07:11)
[2023-08-03] MEDS: Aspirin 81 mg Enteric Coated Tablet PO SCH (08:20)
[2023-08-03] MEDS: Heparin 5,000 UNITS/ML VIAL SC SCH ×2 (08:20→13:49)
[2023-08-03] MEDS: Clopidogrel Bisulfate 75 MG TAB PO SCH (08:20)
[2023-08-03] MEDS: Carvedilol 25 MG TAB PO SCH (08:20)
[2023-08-03] MEDS: Amlodipine 10 MG TAB PO SCH (08:23)
[2023-08-03] MEDS: Minoxidil 2.5 MG TAB PO SCH (08:29)
[2023-08-03 09:34] LABS: #Basophils 0.1 10x3/uL (0.0-0.2); #Eosinphils 0.5 10x3/uL (0.0-0.5); #Monocytes 0.8 10x3/uL (0.0-1.1); #Neutrophils 6.2 10x3/uL (1.5-8.4); %Basophils 0.6 % (0.0-2.0); %Eosinophils 5.5 % (0.0-6.0); %Neutrophils 74.7 % (40.0-75.0); Hematocrit 24.6 % (34.9-44.5); Hemoglobin 7.8 g/dL (12.0-15.5); Mean Corpuscular HGB CONC 31.7 g/dL (32.0-36.0); Mean Corpuscular Hemoglobin 29.1 pg (27.0-33.0); Mean Corpuscular Volume 91.8 fl (81.6-98.3); Mean Platelet Volume 10.3 fl (7.4-10.4); Platelet Count 192 10x3/uL (150-450); RBC Distribution Width 15.4 % (11.5-14.5); Red Blood Cell (RBC) Count 2.68 10x6/uL (3.90-5.03); White Blood Cell (WBC) Count 8.3 10x3/uL (3.5-10.5)
[2023-08-03 09:35] LABS: Anion Gap 18 mmol/L (10-20); BUN (Urea Nitrogen) 36 mg/dL (9.8-20.1); Calc. Creatinine Clearance 6 mL/min (70-130); Calcium 8.5 mg/dL (7.8-10.44); Carbon Dioxide 25 mmol/L (23-31); Chloride 98 mmol/L (98-107); Estimated GFR 5; Glucose 182 mg/dL (83-110); Potassium 5.1 mmol/L (3.5-5.1); Sodium 136 mmol/L (136-145)
[2023-08-03] MEDS: Heparin 10,000 UNITS/ 10 ML VIAL FS PRN (09:35)
[2023-08-03] MEDS ORDERED: Epoetin (ESRD) 10,000 UNITS/ML VIAL SC SCH (10:30)
[2023-08-03 12:50] VITALS: BP 107/48; TEMP 98.9
[2023-08-03] MEDS: Folic Acid/Vit B Comp W-C PO SCH (13:49)
== END 2023-08-03 15:15 | disposition home or self-care (01) | DRG 291 ==
LOC: CSHERS 03:47 → CSHICU 06:41 → CSHTELE 08-01 22:42
PROVIDERS: ADMIT Student in an Organized Health Care Education/Training Program; ATTEND Family Medicine
PROC: 4A043R1 Measurement of Venous Saturation, Peripheral, Percutaneous Approach (ICD-10-PCS; 2023-07-31)
PROC: 5A09357 Assistance with Respiratory Ventilation, Less than 24 Consecutive Hours, Continuous Positive Airway Pressure (ICD-10-PCS; 2023-07-31)
PROC: 30233N1 Transfusion of Nonautologous Red Blood Cells into Peripheral Vein, Percutaneous Approach (ICD-10-PCS; principal; 2023-08-03)
DX: I13.2 Hypertensive heart and chronic kidney disease with heart failure and with stage 5 chronic kidney disease, or end stage renal disease (principal); I50.33 Acute on chronic diastolic (congestive) heart failure; N18.6 End stage renal disease; J96.01 Acute respiratory failure with hypoxia; I16.9 Hypertensive crisis, unspecified; E78.5 Hyperlipidemia, unspecified; Z79.82 Long term (current) use of aspirin; Z79.899 Other long term (current) drug therapy; E03.9 Hypothyroidism, unspecified; Z79.4 Long term (current) use of insulin; Z98.890 Other specified postprocedural states; Z11.52 Encounter for screening for COVID-19; D63.1 Anemia in chronic kidney disease; I5A Non-ischemic myocardial injury (non-traumatic); Z79.01 Long term (current) use of anticoagulants; Z86.73 Personal history of transient ischemic attack (TIA), and cerebral infarction without residual deficits
CPT/HCPCS: 36415; 36416; 36430; 71045; 80048; 80053; 82805; 83880; 84443; 84484; 85025; 86850; 86900; 86901; 90935; 94640; 94660; 94664; 94760; G0257; J0360; J1644; J1815; J2405; J7620; P9016; Q5105

== ENCOUNTER 2023-08-14 20:36 | Inpatient (IN) | payer MEDICARE, OTHER ==
[2023-08-14] MEDS ORDERED: Acetaminophen 500 MG TAB ONE (22:30)
[2023-08-14 22:47] LABS: #Basophils 0.1 10x3/uL (0.0-0.2); #Monocytes 0.5 10x3/uL (0.0-1.1); %Basophils 0.7 % (0.0-2.0); %Eosinophils 0.3 % (0.0-6.0); %Lymphocytes 8.9 % (18.0-47.0); %Monocytes 5.7 % (0.0-10.0); %Neutrophils 84.1 % (40.0-75.0); Hematocrit 33.8 % (34.9-44.5); Hemoglobin 10.9 g/dL (12.0-15.5); Mean Corpuscular HGB CONC 32.2 g/dL (32.0-36.0); Mean Corpuscular Hemoglobin 27.7 pg (27.0-33.0); Mean Platelet Volume 9.7 fl (7.4-10.4); Platelet Count 246 10x3/uL (150-450); RBC Distribution Width 15.7 % (11.5-14.5); Red Blood Cell (RBC) Count 3.93 10x6/uL (3.90-5.03); White Blood Cell (WBC) Count 9.5 10x3/uL (3.5-10.5)
[2023-08-14 22:58] LABS: ALT (SGPT) 11 U/L (8-55); AST (SGOT) 36 U/L (5-34); Albumin 3.1 g/dL (3.4-4.8); Alkaline Phosphatase 68 U/L (40-110); Anion Gap 19 mmol/L (10-20); BUN (Urea Nitrogen) 18 mg/dL (9.8-20.1); Bilirubin, Total 1.1 mg/dL (0.2-1.2); Calc. Creatinine Clearance 0 mL/min (70-130); Calcium 8.8 mg/dL (7.8-10.44); Carbon Dioxide 28 mmol/L (23-31); Chloride 97 mmol/L (98-107); Estimated GFR 9; Globulin 3.2 g/dL (2.4-3.5); Glucose 119 mg/dL (83-110); Potassium 3.9 mmol/L (3.5-5.1); Protein, Total 6.3 g/dL (5.8-8.1); Sodium 140 mmol/L (136-145)
[2023-08-14 23:03] LABS: Troponin I 1.362 ng/mL (< 0.028)
[2023-08-14] MEDS ORDERED: Acetaminophen 650 MG/20.3 ML UDCUP ONE (23:06)
[2023-08-14 23:25] LABS: SARS-CoV-2 NAA Rapid Test DETECTED (NotDetected)
[2023-08-14] MEDS ORDERED: Aspirin Chewable 81 MG TAB ONE (23:30)
[2023-08-15 00:35] LABS: Troponin I 1.313 ng/mL (< 0.028)
[2023-08-15] MEDS ORDERED: Calcium Carbonate 500 MG ChewTAB PO PRN (01:27)
[2023-08-15] MEDS ORDERED: HumaLOG 300 UNITS/3 ML VIAL SC PRN (01:27)
[2023-08-15] MEDS ORDERED: Guaifenesin DM 100-10/5 ML UDCUP PO PRN (01:27)
[2023-08-15] MEDS ORDERED: Dextrose 5% in Water 1,000 ML IV PRN (01:27)
[2023-08-15] MEDS ORDERED: HYDROcodone/Acetaminophen 5/325 mg Tablet PO PRN (01:27)
[2023-08-15] MEDS ORDERED: Glucagon 1 MG/ML KIT IM PRN (01:27)
[2023-08-15] MEDS ORDERED: Dextrose 50% Abboject 50 ML SYRINGE SLOW IVP PRN (01:27)
[2023-08-15] MEDS ORDERED: Ondansetron PF 4 MG/2 ML Vial IVP PRN (01:27)
[2023-08-15] MEDS ORDERED: Ventolin HFA Inhaler 60 PUFF INHALER INH PRN (01:32)
[2023-08-15] MEDS ORDERED: Nitroglycerin 0.4 MG TAB (25 Tab Bottle) SL PRN (01:39)
[2023-08-15] MEDS ORDERED: Benzocaine/Menthol 1 LOZ LOZ PO PRN (02:02)
[2023-08-15] MEDS ORDERED: Sodium Chloride 0.9% 250 ML 250 ML IVPB SCH (04:00)
[2023-08-15] MEDS: Azithromycin 500 MG in Sodium Chloride 0.9% 250 ML 250 ML IVPB SCH (04:45)
[2023-08-15 04:52] LABS: #Monocytes 0.4 10x3/uL (0.0-1.1); #Neutrophils 4.1 10x3/uL (1.5-8.4); %Basophils 0.7 % (0.0-2.0); %Monocytes 7.5 % (0.0-10.0); %Neutrophils 75.6 % (40.0-75.0); Hematocrit 31.4 % (34.9-44.5); Hemoglobin 10.2 g/dL (12.0-15.5); Mean Corpuscular HGB CONC 32.5 g/dL (32.0-36.0); Mean Corpuscular Hemoglobin 28.1 pg (27.0-33.0); Mean Corpuscular Volume 86.5 fl (81.6-98.3); Mean Platelet Volume 10.1 fl (7.4-10.4); Platelet Count 184 10x3/uL (150-450); RBC Distribution Width 15.7 % (11.5-14.5); Red Blood Cell (RBC) Count 3.63 10x6/uL (3.90-5.03); White Blood Cell (WBC) Count 5.5 10x3/uL (3.5-10.5)
[2023-08-15 04:59] LABS: Anion Gap 17 mmol/L (10-20); BUN (Urea Nitrogen) 24 mg/dL (9.8-20.1); Calc. Creatinine Clearance 0 mL/min (70-130); Calcium 8.2 mg/dL (7.8-10.44); Carbon Dioxide 28 mmol/L (23-31); Chloride 99 mmol/L (98-107); Estimated GFR 8; Glucose 107 mg/dL (83-110); Potassium 3.5 mmol/L (3.5-5.1); Sodium 140 mmol/L (136-145)
[2023-08-15] MEDS: Levothyroxine Sodium 100 MCG TAB PO SCH (06:40)
[2023-08-15] MEDS: Mometasone/Formoterol 200/5 60 PUFF INH SCH ×2 (07:00→19:46)
[2023-08-15] MEDS ORDERED: Carvedilol 12.5 MG TAB PO SCH (09:00)
[2023-08-15 09:08] VITALS: BMI 20.7
[2023-08-15 09:08] LABS: Troponin I 0.754 ng/mL (< 0.028)
[2023-08-15] MEDS: Benzonatate 100 MG CAP PO SCH ×3 (09:19→21:55)
[2023-08-15] MEDS: Clopidogrel Bisulfate 75 MG TAB PO SCH (09:19)
[2023-08-15] MEDS: Carvedilol 6.25 MG TAB PO SCH ×2 (09:19→16:55)
[2023-08-15] MEDS: guaiFENesin ER 600 MG TAB PO SCH ×2 (09:19→21:55)
[2023-08-15] MEDS: Heparin 5,000 UNITS/ML VIAL SC SCH ×3 (09:19→21:56)
[2023-08-15] MEDS: Aspirin 81 mg Enteric Coated Tablet PO SCH (09:19)
[2023-08-15] MEDS: Folic Acid/Vit B Comp W-C PO SCH (10:03)
[2023-08-15] MEDS: Zinc Sulfate 220 MG CAP PO SCH (10:03)
[2023-08-15] MEDS: Atorvastatin Calcium 40 MG TAB PO SCH (21:55)
[2023-08-16] MEDS: Acetaminophen 325 MG TAB PO PRN (01:40)
[2023-08-16 04:17] LABS: #Monocytes 0.4 10x3/uL (0.0-1.1); %Basophils 0.6 % (0.0-2.0); %Eosinophils 0.6 % (0.0-6.0); %Lymphocytes 15.7 % (18.0-47.0); %Monocytes 6.9 % (0.0-10.0); Hematocrit 30.6 % (34.9-44.5); Hemoglobin 9.6 g/dL (12.0-15.5); Mean Corpuscular HGB CONC 31.4 g/dL (32.0-36.0); Mean Platelet Volume 9.8 fl (7.4-10.4); Platelet Count 165 10x3/uL (150-450); RBC Distribution Width 15.6 % (11.5-14.5); Red Blood Cell (RBC) Count 3.56 10x6/uL (3.90-5.03); White Blood Cell (WBC) Count 5.2 10x3/uL (3.5-10.5)
[2023-08-16 04:26] LABS: Anion Gap 18 mmol/L (10-20); BUN (Urea Nitrogen) 40 mg/dL (9.8-20.1); Calc. Creatinine Clearance 6 mL/min (70-130); Calcium 8.1 mg/dL (7.8-10.44); Carbon Dioxide 26 mmol/L (23-31); Chloride 98 mmol/L (98-107); Estimated GFR 5; Glucose 107 mg/dL (83-110); Potassium 3.9 mmol/L (3.5-5.1); Sodium 138 mmol/L (136-145)
[2023-08-16 04:33] LABS: Troponin I 0.493 ng/mL (< 0.028)
[2023-08-16] MEDS: Azithromycin 500 MG in Sodium Chloride 0.9% 250 ML 250 ML IVPB SCH (05:03)
[2023-08-16] MEDS: Levothyroxine Sodium 100 MCG TAB PO SCH (06:14)
[2023-08-16] MEDS: Carvedilol 6.25 MG TAB PO SCH ×2 (08:00→16:49)
[2023-08-16] MEDS ORDERED: Iopamidol 370 76% 100 ML VIAL ONE (09:51)
[2023-08-16] MEDS: Benzonatate 100 MG CAP PO SCH ×3 (11:40→21:28)
[2023-08-16] MEDS: guaiFENesin ER 600 MG TAB PO SCH ×2 (11:40→21:28)
[2023-08-16] MEDS: Aspirin 81 mg Enteric Coated Tablet PO SCH (11:40)
[2023-08-16] MEDS: Clopidogrel Bisulfate 75 MG TAB PO SCH (11:40)
[2023-08-16] MEDS: Folic Acid/Vit B Comp W-C PO SCH (11:40)
[2023-08-16] MEDS: Heparin 5,000 UNITS/ML VIAL SC SCH ×2 (11:41→16:49)
[2023-08-16] MEDS: Zinc Sulfate 220 MG CAP PO SCH (11:41)
[2023-08-16] MEDS: Mometasone/Formoterol 200/5 60 PUFF INH SCH ×2 (15:04→20:20)
[2023-08-16] MEDS ORDERED: Heparin 10,000 UNITS/ 10 ML VIAL SLOW IVP PRN (18:07)
[2023-08-16] MEDS: Atorvastatin Calcium 40 MG TAB PO SCH (21:27)
[2023-08-16] MEDS: REMDESIVIR 200 MG in Sodium Chloride 0.9% 250 ML 210 ML IV SCH (21:28)
[2023-08-16] MEDS: EPOETIN ALFA-EPBX (ESRD) 10,000 UNITS/ML VIAL IVP PRN (22:54)
[2023-08-17] MEDS: REMDESIVIR 200 MG in Sodium Chloride 0.9% 250 ML 210 ML IV SCH (00:06)
[2023-08-17] MEDS: Heparin 5,000 UNITS/ML VIAL SC SCH ×4 (00:08→20:32)
[2023-08-17] MEDS: guaiFENesin ER 600 MG TAB PO SCH ×3 (00:08→20:32)
[2023-08-17] MEDS: Atorvastatin Calcium 40 MG TAB PO SCH ×2 (00:08→20:31)
[2023-08-17] MEDS: Acetaminophen 325 MG TAB PO PRN (00:36)
[2023-08-17] MEDS: Azithromycin 500 MG in Sodium Chloride 0.9% 250 ML 250 ML IVPB SCH (03:46)
[2023-08-17 03:57] LABS: #Basophils 0.1 10x3/uL (0.0-0.2); #Monocytes 0.3 10x3/uL (0.0-1.1); #Neutrophils 4.7 10x3/uL (1.5-8.4); %Basophils 0.9 % (0.0-2.0); %Eosinophils 0.3 % (0.0-6.0); %Lymphocytes 11.4 % (18.0-47.0); %Monocytes 5.4 % (0.0-10.0); %Neutrophils 81.7 % (40.0-75.0); Hematocrit 31.6 % (34.9-44.5); Hemoglobin 10.1 g/dL (12.0-15.5); Mean Corpuscular Hemoglobin 27.5 pg (27.0-33.0); Mean Corpuscular Volume 86.1 fl (81.6-98.3); Mean Platelet Volume 10.3 fl (7.4-10.4); Platelet Count 161 10x3/uL (150-450); RBC Distribution Width 15.8 % (11.5-14.5); Red Blood Cell (RBC) Count 3.67 10x6/uL (3.90-5.03); White Blood Cell (WBC) Count 5.8 10x3/uL (3.5-10.5)
[2023-08-17 04:03] LABS: ALT (SGPT) 12 U/L (8-55); AST (SGOT) 26 U/L (5-34); Albumin 2.9 g/dL (3.4-4.8); Alkaline Phosphatase 65 U/L (40-110); Bilirubin, Direct 0.6 mg/dL (0.1-0.3); Bilirubin, Total 1.1 mg/dL (0.2-1.2); Protein, Total 5.7 g/dL (5.8-8.1)
[2023-08-17 04:22] LABS: Anion Gap 19 mmol/L (10-20); BUN (Urea Nitrogen) 14 mg/dL (9.8-20.1); Calc. Creatinine Clearance 12 mL/min (70-130); Calcium 8.5 mg/dL (7.8-10.44); Carbon Dioxide 27 mmol/L (23-31); Chloride 99 mmol/L (98-107); Estimated GFR 13; Glucose 117 mg/dL (83-110); Potassium 3.5 mmol/L (3.5-5.1); Sodium 141 mmol/L (136-145)
[2023-08-17] MEDS: Levothyroxine Sodium 100 MCG TAB PO SCH (05:31)
[2023-08-17] MEDS: Mometasone/Formoterol 200/5 60 PUFF INH SCH ×2 (07:28→20:05)
[2023-08-17] MEDS: Zinc Sulfate 220 MG CAP PO SCH (08:30)
[2023-08-17] MEDS: Folic Acid/Vit B Comp W-C PO SCH (08:31)
[2023-08-17] MEDS: cefTRIAXone\\ROCEPHIN 1 GM in Sodium Chloride 0.9% 100 ML IVPB SCH (08:31)
[2023-08-17] MEDS: Aspirin 81 mg Enteric Coated Tablet PO SCH (08:31)
[2023-08-17] MEDS: Benzonatate 100 MG CAP PO SCH ×3 (08:31→20:32)
[2023-08-17] MEDS: Clopidogrel Bisulfate 75 MG TAB PO SCH (08:31)
[2023-08-17] MEDS: Carvedilol 6.25 MG TAB PO SCH ×2 (08:31→16:48)
[2023-08-17] MEDS: REMDESIVIR 100 MG in Sodium Chloride 0.9% 250 ML 230 ML IV SCH (20:31)
[2023-08-18] MEDS: Azithromycin 500 MG in Sodium Chloride 0.9% 250 ML 250 ML IVPB SCH (03:39)
[2023-08-18 03:46] LABS: ALT (SGPT) 12 U/L (8-55); AST (SGOT) 26 U/L (5-34); Albumin 2.8 g/dL (3.4-4.8); Alkaline Phosphatase 66 U/L (40-110); Bilirubin, Direct 0.3 mg/dL (0.1-0.3); Bilirubin, Total 0.5 mg/dL (0.2-1.2); Protein, Total 5.5 g/dL (5.8-8.1)
[2023-08-18 03:49] LABS: Anion Gap 19 mmol/L (10-20); BUN (Urea Nitrogen) 34 mg/dL (9.8-20.1); Calc. Creatinine Clearance 8 mL/min (70-130); Calcium 8.7 mg/dL (7.8-10.44); Carbon Dioxide 26 mmol/L (23-31); Chloride 98 mmol/L (98-107); Estimated GFR 8; Glucose 50 mg/dL (83-110); Potassium 3.7 mmol/L (3.5-5.1); Sodium 139 mmol/L (136-145)
[2023-08-18 03:54] LABS: #Basophils 0.1 10x3/uL (0.0-0.2); #Eosinphils 0.2 10x3/uL (0.0-0.5); #Monocytes 0.6 10x3/uL (0.0-1.1); #Neutrophils 6.3 10x3/uL (1.5-8.4); %Basophils 0.9 % (0.0-2.0); %Lymphocytes 22.1 % (18.0-47.0); %Monocytes 6.5 % (0.0-10.0); %Neutrophils 67.7 % (40.0-75.0); Hematocrit 36.2 % (34.9-44.5); Hemoglobin 11.6 g/dL (12.0-15.5); Mean Corpuscular Hemoglobin 27.3 pg (27.0-33.0); Mean Corpuscular Volume 85.2 fl (81.6-98.3); Mean Platelet Volume 10.3 fl (7.4-10.4); Platelet Count 104 10x3/uL (150-450); Red Blood Cell (RBC) Count 4.25 10x6/uL (3.90-5.03); White Blood Cell (WBC) Count 9.3 10x3/uL (3.5-10.5)
[2023-08-18] MEDS: Levothyroxine Sodium 100 MCG TAB PO SCH (05:36)
[2023-08-18] MEDS: Mometasone/Formoterol 200/5 60 PUFF INH SCH ×2 (10:35→18:58)
[2023-08-18] MEDS: Clopidogrel Bisulfate 75 MG TAB PO SCH (12:23)
[2023-08-18] MEDS: Benzonatate 100 MG CAP PO SCH ×4 (12:24→20:22)
[2023-08-18] MEDS: Amlodipine 5 MG TAB PO SCH (12:24)
[2023-08-18] MEDS: Carvedilol 6.25 MG TAB PO SCH ×2 (12:25→17:38)
[2023-08-18] MEDS: Heparin 5,000 UNITS/ML VIAL SC SCH ×3 (12:26→20:22)
[2023-08-18] MEDS: Folic Acid/Vit B Comp W-C PO SCH ×2 (12:26→17:40)
[2023-08-18] MEDS: Zinc Sulfate 220 MG CAP PO SCH ×2 (12:26→17:40)
[2023-08-18] MEDS: cefTRIAXone\\ROCEPHIN 1 GM in Sodium Chloride 0.9% 100 ML IVPB SCH ×2 (12:26→17:39)
[2023-08-18] MEDS: guaiFENesin ER 600 MG TAB PO SCH ×2 (12:26→20:22)
[2023-08-18] MEDS: Aspirin 81 mg Enteric Coated Tablet PO SCH ×2 (12:26→17:40)
[2023-08-18] MEDS: REMDESIVIR 100 MG in Sodium Chloride 0.9% 250 ML 230 ML IV SCH (20:21)
[2023-08-18] MEDS: Atorvastatin Calcium 40 MG TAB PO SCH (20:22)
[2023-08-19 03:57] LABS: #Eosinphils 0.1 10x3/uL (0.0-0.5); #Monocytes 0.4 10x3/uL (0.0-1.1); #Neutrophils 3.8 10x3/uL (1.5-8.4); %Basophils 0.7 % (0.0-2.0); %Eosinophils 2.2 % (0.0-6.0); %Lymphocytes 20.4 % (18.0-47.0); %Monocytes 7.6 % (0.0-10.0); %Neutrophils 68.9 % (40.0-75.0); Hematocrit 34.3 % (34.9-44.5); Hemoglobin 10.6 g/dL (12.0-15.5); Mean Corpuscular HGB CONC 30.9 g/dL (32.0-36.0); Mean Corpuscular Hemoglobin 26.8 pg (27.0-33.0); Mean Corpuscular Volume 86.8 fl (81.6-98.3); Mean Platelet Volume 10.3 fl (7.4-10.4); Platelet Count 221 10x3/uL (150-450); RBC Distribution Width 16.2 % (11.5-14.5); Red Blood Cell (RBC) Count 3.95 10x6/uL (3.90-5.03); White Blood Cell (WBC) Count 5.6 10x3/uL (3.5-10.5)
[2023-08-19 04:14] LABS: Anion Gap 21 mmol/L (10-20); BUN (Urea Nitrogen) 53 mg/dL (9.8-20.1); Calc. Creatinine Clearance 6 mL/min (70-130); Calcium 8.3 mg/dL (7.8-10.44); Carbon Dioxide 23 mmol/L (23-31); Chloride 96 mmol/L (98-107); Estimated GFR 5; Glucose 134 mg/dL (83-110); Sodium 136 mmol/L (136-145)
[2023-08-19] MEDS: Levothyroxine Sodium 100 MCG TAB PO SCH (05:45)
[2023-08-19] MEDS: Heparin 5,000 UNITS/ML VIAL SC SCH ×3 (09:04→20:29)
[2023-08-19] MEDS: guaiFENesin ER 600 MG TAB PO SCH ×2 (09:05→20:28)
[2023-08-19] MEDS: Mometasone/Formoterol 200/5 60 PUFF INH SCH ×2 (11:20→19:20)
[2023-08-19] MEDS: EPOETIN ALFA-EPBX (ESRD) 10,000 UNITS/ML VIAL IVP PRN (19:33)
[2023-08-19] MEDS: Carvedilol 6.25 MG TAB PO SCH (20:23)
[2023-08-19] MEDS: Amlodipine 5 MG TAB PO SCH (20:23)
[2023-08-19] MEDS: cefTRIAXone\\ROCEPHIN 1 GM in Sodium Chloride 0.9% 100 ML IVPB SCH (20:23)
[2023-08-19] MEDS: Folic Acid/Vit B Comp W-C PO SCH (20:24)
[2023-08-19] MEDS: Benzonatate 100 MG CAP PO SCH ×2 (20:24→20:28)
[2023-08-19] MEDS: Zinc Sulfate 220 MG CAP PO SCH (20:24)
[2023-08-19] MEDS: Aspirin 81 mg Enteric Coated Tablet PO SCH (20:24)
[2023-08-19] MEDS: Clopidogrel Bisulfate 75 MG TAB PO SCH (20:24)
[2023-08-19] MEDS: Atorvastatin Calcium 40 MG TAB PO SCH (20:28)
[2023-08-20 04:17] LABS: #Monocytes 0.5 10x3/uL (0.0-1.1); #Neutrophils 5.2 10x3/uL (1.5-8.4); %Basophils 0.3 % (0.0-2.0); %Eosinophils 0.4 % (0.0-6.0); %Lymphocytes 14.5 % (18.0-47.0); %Monocytes 7.4 % (0.0-10.0); %Neutrophils 77.1 % (40.0-75.0); Hematocrit 36.3 % (34.9-44.5); Hemoglobin 11.6 g/dL (12.0-15.5); Mean Corpuscular Hemoglobin 27.2 pg (27.0-33.0); Mean Corpuscular Volume 85.2 fl (81.6-98.3); Mean Platelet Volume 11.9 fl (7.4-10.4); Platelet Count 257 10x3/uL (150-450); RBC Distribution Width 17.1 % (11.5-14.5); Red Blood Cell (RBC) Count 4.26 10x6/uL (3.90-5.03); White Blood Cell (WBC) Count 6.7 10x3/uL (3.5-10.5)
[2023-08-20] MEDS: Levothyroxine Sodium 100 MCG TAB PO SCH (05:44)
[2023-08-20 06:15] LABS: Anion Gap 19 mmol/L (10-20); BUN (Urea Nitrogen) 27 mg/dL (9.8-20.1); Calc. Creatinine Clearance 9 mL/min (70-130); Calcium 8.1 mg/dL (7.8-10.44); Carbon Dioxide 24 mmol/L (23-31); Chloride 99 mmol/L (98-107); Estimated GFR 10; Glucose 117 mg/dL (83-110); Sodium 138 mmol/L (136-145)
[2023-08-20] MEDS: Folic Acid/Vit B Comp W-C PO SCH (08:14)
[2023-08-20] MEDS: Aspirin 81 mg Enteric Coated Tablet PO SCH (08:14)
[2023-08-20] MEDS: Heparin 5,000 UNITS/ML VIAL SC SCH (08:15)
[2023-08-20] MEDS: Clopidogrel Bisulfate 75 MG TAB PO SCH (08:15)
[2023-08-20] MEDS: Benzonatate 100 MG CAP PO SCH (08:15)
[2023-08-20] MEDS: Amlodipine 5 MG TAB PO SCH (08:15)
[2023-08-20] MEDS: Carvedilol 6.25 MG TAB PO SCH (08:15)
[2023-08-20] MEDS: guaiFENesin ER 600 MG TAB PO SCH (08:15)
[2023-08-20] MEDS: cefTRIAXone\\ROCEPHIN 1 GM in Sodium Chloride 0.9% 100 ML IVPB SCH (08:15)
[2023-08-20] MEDS: Zinc Sulfate 220 MG CAP PO SCH (08:15)
[2023-08-20 09:59] VITALS: TEMP 97.7
[2023-08-20] MEDS: Mometasone/Formoterol 200/5 60 PUFF INH SCH (10:40)
[2023-08-20 14:08] VITALS: BP 127/56
== END 2023-08-20 14:53 | disposition short-term general hospital (02) | DRG 177 ==
LOC: CSHERS 20:36 → CSHTELE 08-15 01:08
PROVIDERS: ADMIT Student in an Organized Health Care Education/Training Program; ATTEND Family Medicine
PROC: XW033E5 Introduction of Remdesivir Anti-infective into Peripheral Vein, Percutaneous Approach, New Technology Group 5 (ICD-10-PCS; principal; 2023-08-16)
PROC: 8E0ZXY6 Isolation (ICD-10-PCS; 2023-08-16)
PROC: 06HY33Z Insertion of Infusion Device into Lower Vein, Percutaneous Approach (ICD-10-PCS; 2023-08-19)
PROC: 5A1D70Z Performance of Urinary Filtration, Intermittent, Less than 6 Hours Per Day (ICD-10-PCS; 2023-08-19)
DX: U07.1 COVID-19 (principal); I21.A1 Myocardial infarction type 2; J12.82 Pneumonia due to coronavirus disease 2019; N18.6 End stage renal disease; I50.32 Chronic diastolic (congestive) heart failure; I13.2 Hypertensive heart and chronic kidney disease with heart failure and with stage 5 chronic kidney disease, or end stage renal disease; J44.0 Chronic obstructive pulmonary disease with (acute) lower respiratory infection; C64.2 Malignant neoplasm of left kidney, except renal pelvis; T82.898A Other specified complication of vascular prosthetic devices, implants and grafts, initial encounter; E78.5 Hyperlipidemia, unspecified; E03.9 Hypothyroidism, unspecified; I27.20 Pulmonary hypertension, unspecified; I35.0 Nonrheumatic aortic (valve) stenosis; D63.8 Anemia in other chronic diseases classified elsewhere; Y83.8 Other surgical procedures as the cause of abnormal reaction of the patient, or of later complication, without mention of misadventure at the time of the procedure; Z79.51 Long term (current) use of inhaled steroids; Z79.82 Long term (current) use of aspirin; Z79.899 Other long term (current) drug therapy; Z79.84 Long term (current) use of oral hypoglycemic drugs; Z99.2 Dependence on renal dialysis; Z98.890 Other specified postprocedural states; Z86.73 Personal history of transient ischemic attack (TIA), and cerebral infarction without residual deficits
CPT/HCPCS: 36415; 36416; 70450; 71045; 71275; 80048; 80053; 80076; 82728; 83605; 83615; 84145; 84484; 85025; 85379; 86140; 87040; 90935; 93005; 93010; 93306; 94664; 94760; G0257; J0248; J0456; J0696; J1644; J1815; J2405; J3490; J7050; J7999; Q5105; Q9967

== ENCOUNTER 2023-11-08 07:11 | Inpatient (IN) | payer MEDICARE, OTHER ==
[2023-11-08] MEDS ORDERED: Nitroglycerin 0.4 MG TAB 1 EACH ONE (07:17)
[2023-11-08 07:29] LABS: Actual Bicarbonate (HCO3v) 26.3 mEq/L (22-28); Analyzer IN Cardio CS ER; Base Excess -1.9 mEq/L (-2 - +2); Calcium, Ionized (venous) 1.11 mmol/L (1.16-1.32); Chloride (VBG) 101 mmol/L (98-106); Hematocrit-VBG 42 % (36.0-47.0); Hemoglobin (Hb) 14.2 g/dL (11.7-16.1); Potassium (VBG) 4.27 mmol/L (3.70-5.30); Puncture Site Other Site; RapidComm Collect By LAB.CB1; Sodium 141 mmol/L (133-146); pH (venous) 7.263 (7.32-7.43)
[2023-11-08] MEDS ORDERED: Ipratropium/Albuterol 3 ML NEB ONE (07:31)
[2023-11-08] MEDS ORDERED: Nitroglycerin 50 MG/250 ML BOT 250 ML ONE (07:32)
[2023-11-08] MEDS ORDERED: methylPREDNISolone Sod Succ/PF 125 MG/2 ML VIAL ONE (07:44)
[2023-11-08] MEDS ORDERED: Magnesium 2 GM/50 ML BAG (IN WATER) ONE (07:45)
[2023-11-08 08:11] LABS: #Basophils 0.1 10x3/uL (0.0-0.2); #Eosinphils 0.4 10x3/uL (0.0-0.5); #Monocytes 0.8 10x3/uL (0.0-1.1); #Neutrophils 12.1 10x3/uL (1.5-8.4); %Basophils 0.7 % (0.0-2.0); %Eosinophils 2.4 % (0.0-6.0); %Lymphocytes 9.6 % (18.0-47.0); %Monocytes 5.2 % (0.0-10.0); %Neutrophils 81.6 % (40.0-75.0); Hematocrit 41.1 % (34.9-44.5); Hemoglobin 12.5 g/dL (12.0-15.5); Mean Corpuscular HGB CONC 30.4 g/dL (32.0-36.0); Mean Corpuscular Hemoglobin 25.8 pg (27.0-33.0); Mean Corpuscular Volume 84.9 fl (81.6-98.3); Mean Platelet Volume 9.5 fl (7.4-10.4); Platelet Count 316 10x3/uL (150-450); RBC Distribution Width 16.5 % (11.5-14.5); Red Blood Cell (RBC) Count 4.84 10x6/uL (3.90-5.03); White Blood Cell (WBC) Count 14.8 10x3/uL (3.5-10.5)
[2023-11-08] MEDS ORDERED: cefTRIAXone (ROCEPHIN) 2 GM VIAL ONE (08:37)
[2023-11-08 08:38] LABS: ALT (SGPT) 10 U/L (8-55); AST (SGOT) 19 U/L (5-34); Albumin 3.3 g/dL (3.4-4.8); Alkaline Phosphatase 142 U/L (40-110); Anion Gap 23 mmol/L (10-20); BUN (Urea Nitrogen) 23 mg/dL (9.8-20.1); Bilirubin, Total 0.7 mg/dL (0.2-1.2); Calc. Creatinine Clearance 0 mL/min (70-130); Calcium 8.9 mg/dL (7.8-10.44); Carbon Dioxide 21 mmol/L (23-31); Chloride 103 mmol/L (98-107); Estimated GFR 6; Globulin 3.2 g/dL (2.4-3.5); Glucose 178 mg/dL (83-110); Magnesium 2.1 mg/dL (1.6-2.6); Potassium 4.6 mmol/L (3.5-5.1); Protein, Total 6.5 g/dL (5.8-8.1); Sodium 142 mmol/L (136-145)
[2023-11-08 08:43] LABS: Critical Call Chem Troponin I NUR.JBM AT 0842; Troponin I 0.579 ng/mL (< 0.028)
[2023-11-08] MEDS ORDERED: Aspirin Chewable 81 MG TAB ONE (09:21)
[2023-11-08] MEDS ORDERED: Loratadine 10 MG TAB PO PRN (09:50)
[2023-11-08] MEDS ORDERED: Acetaminophen 325 MG TAB PO PRN (09:50)
[2023-11-08] MEDS ORDERED: Ondansetron PF 4 MG/2 ML Vial IVP PRN (09:50)
[2023-11-08] MEDS ORDERED: Nitroglycerin 0.4 MG TAB (25 Tab Bottle) SL PRN (09:50)
[2023-11-08] MEDS ORDERED: Ondansetron ODT 4 MG TAB PO PRN ×2 (09:50)
[2023-11-08] MEDS ORDERED: Guaifenesin DM 100-10/5 ML UDCUP PO PRN (09:50)
[2023-11-08] MEDS ORDERED: Artificial Tear Sol 15 ML BOT EA EYE PRN (09:50)
[2023-11-08] MEDS ORDERED: Sodium Chloride 0.65% Nasal 44 ML BOT EA NARE PRN (09:50)
[2023-11-08] MEDS ORDERED: diphenhydrAMINE 25 MG CAP PO PRN (09:50)
[2023-11-08] MEDS ORDERED: Moisturizing Cream (Eucerin) 113 GM JAR TOP PRN (09:50)
[2023-11-08] MEDS ORDERED: diphenhydrAMINE 50 MG/ML VIAL IVP PRN (09:50)
[2023-11-08] MEDS ORDERED: Calcium Carbonate 500 MG ChewTAB PO PRN (09:50)
[2023-11-08] MEDS ORDERED: Acetaminophen 650 MG Suppository PR PRN (09:50)
[2023-11-08] MEDS ORDERED: Benzonatate 100 MG CAP PO PRN (09:50)
[2023-11-08] MEDS ORDERED: Vancomycin 1 GM VIAL ONE (09:51)
[2023-11-08 11:14] LABS: Troponin I 0.284 ng/mL (< 0.028)
[2023-11-08 11:37] LABS: Lactic Acid 1.1 mmol/L (0.5-2.2)
[2023-11-08] MEDS ORDERED: Nitroglycerin 50 MG/250 ML BOT 250 ML IVPB SCH (11:45)
[2023-11-08] MEDS ORDERED: Vancomycin Hemodialysis Sliding Scale FS SCH (12:15)
[2023-11-08] MEDS: Aspirin 325 MG TAB PO SCH (12:23)
[2023-11-08] MEDS ORDERED: Cefepime 1 GM in Sodium Chloride 0.9% 100 ML IVPB SCH (14:00)
[2023-11-08 14:18] LABS: Troponin I 0.562 ng/mL (< 0.028)
[2023-11-08 14:37] VITALS: BMI 24.0
[2023-11-08] MEDS: Heparin 5,000 UNITS/ML VIAL SC SCH (16:38)
[2023-11-08] MEDS: LevoFLOXacin 750 mg/D5W 750 MG in Premix 1 BAG IVPB SCH (16:39)
[2023-11-08] MEDS: Cefepime 1 GM in Sodium Chloride 0.9% 100 ML IVPB SCH (16:39)
[2023-11-08] MEDS ORDERED: Vancomycin HCl 500 MG in Sodium Chloride 0.9% 100 ML IVPB SCH (17:00)
[2023-11-08] MEDS ORDERED: Glucagon 1 MG/ML KIT IM PRN (17:04)
[2023-11-08] MEDS ORDERED: Dextrose 5% in Water 1,000 ML IV PRN (17:04)
[2023-11-08] MEDS ORDERED: Dextrose 50% Abboject 50 ML SYRINGE SLOW IVP PRN (17:04)
[2023-11-08] MEDS: Vancomycin HCl 500 MG in Sodium Chloride 0.9% 100 ML IVPB SCH (17:33)
[2023-11-08 18:09] LABS: Influenza A by NAA Not Detected (NotDetected); Influenza B by NAA Not Detected (NotDetected); RSV by NAA Not Detected (NotDetected); SARS-CoV-2 NAA Rapid Test Not Detected (NotDetected)
[2023-11-08] MEDS: Mometasone/Formoterol 200/5 60 PUFF INH SCH (20:20)
[2023-11-08] MEDS: Atorvastatin Calcium 40 MG TAB PO SCH (20:23)
[2023-11-08] MEDS: cloNIDine 0.1 MG TAB PO SCH (20:23)
[2023-11-08] MEDS: Famotidine 20 MG TAB PO SCH (20:23)
[2023-11-08] MEDS: Carvedilol 12.5 MG TAB PO SCH (20:23)
[2023-11-08] MEDS: Ondansetron PF 4 MG/2 ML Vial IVP PRN (20:23)
[2023-11-08] MEDS: Azelastine 137 MCG/NASAL Spray 30 ML NS SCH (20:24)
[2023-11-08] MEDS: Folic Acid/Vit B Comp W-C PO SCH (20:26)
[2023-11-08] MEDS: HumaLOG 300 UNITS/3 ML VIAL SC PRN (20:35)
[2023-11-08] MEDS ORDERED: Vancomycin 1 GM in Sodium Chloride 0.9% 250 ML 300 ML IVPB SCH (21:00)
[2023-11-08] MEDS ORDERED: Famotidine/PF 20 mg/2ml Vial SLOW IVP PRN (21:00)
[2023-11-09 03:38] LABS: #Basophils 0.1 10x3/uL (0.0-0.2); #Monocytes 0.9 10x3/uL (0.0-1.1); #Neutrophils 5.8 10x3/uL (1.5-8.4); %Basophils 0.6 % (0.0-2.0); %Lymphocytes 12.1 % (18.0-47.0); %Monocytes 11.4 % (0.0-10.0); %Neutrophils 75.6 % (40.0-75.0); Hematocrit 35.2 % (34.9-44.5); Hemoglobin 10.6 g/dL (12.0-15.5); Mean Corpuscular HGB CONC 30.1 g/dL (32.0-36.0); Mean Corpuscular Hemoglobin 25.1 pg (27.0-33.0); Mean Corpuscular Volume 83.4 fl (81.6-98.3); Mean Platelet Volume 9.7 fl (7.4-10.4); Platelet Count 273 10x3/uL (150-450); RBC Distribution Width 16.7 % (11.5-14.5); Red Blood Cell (RBC) Count 4.22 10x6/uL (3.90-5.03); White Blood Cell (WBC) Count 7.7 10x3/uL (3.5-10.5)
[2023-11-09 03:51] LABS: Anion Gap 16 mmol/L (10-20); BUN (Urea Nitrogen) 19 mg/dL (9.8-20.1); Calc. Creatinine Clearance 10 mL/min (70-130); Calcium 8.5 mg/dL (7.8-10.44); Carbon Dioxide 26 mmol/L (23-31); Cardiac Risk 3.3 (Less than 4.5); Chloride 100 mmol/L (98-107); Cholesterol 99 mg/dl (< 200 Desired); Estimated GFR 10; Glucose 146 mg/dL (83-110); HDL Cholesterol 30 mg/dL (>60 Neg Risk); LDL Cholesterol, Calculated 58 mg/dL; Potassium 3.7 mmol/L (3.5-5.1); Sodium 138 mmol/L (136-145); Triglycerides 57 mg/dL (Less than 150)
[2023-11-09] MEDS: Levothyroxine Sodium 100 MCG TAB PO SCH (06:16)
[2023-11-09] MEDS: Amlodipine 10 MG TAB PO SCH (08:27)
[2023-11-09] MEDS: Clopidogrel Bisulfate 75 MG TAB PO SCH (08:27)
[2023-11-09] MEDS: Aspirin Chewable 81 MG TAB PO SCH (08:27)
[2023-11-09] MEDS: Minoxidil 2.5 MG TAB PO SCH (08:28)
[2023-11-09] MEDS: HumaLOG 300 UNITS/3 ML VIAL SC PRN (12:34)
[2023-11-09] MEDS: Ipratropium/Albuterol 3 ML NEB NEB PRN (12:40)
[2023-11-10 04:59] LABS: #Basophils 0.1 10x3/uL (0.0-0.2); #Eosinphils 0.3 10x3/uL (0.0-0.5); #Monocytes 0.9 10x3/uL (0.0-1.1); #Neutrophils 6.2 10x3/uL (1.5-8.4); %Basophils 0.9 % (0.0-2.0); %Eosinophils 3.7 % (0.0-6.0); %Lymphocytes 12.7 % (18.0-47.0); %Monocytes 10.5 % (0.0-10.0); Hematocrit 34.3 % (34.9-44.5); Hemoglobin 10.3 g/dL (12.0-15.5); Mean Corpuscular Hemoglobin 25.3 pg (27.0-33.0); Mean Corpuscular Volume 84.3 fl (81.6-98.3); Mean Platelet Volume 9.2 fl (7.4-10.4); Platelet Count 273 10x3/uL (150-450); RBC Distribution Width 16.8 % (11.5-14.5); Red Blood Cell (RBC) Count 4.07 10x6/uL (3.90-5.03); White Blood Cell (WBC) Count 8.7 10x3/uL (3.5-10.5)
[2023-11-10 05:06] LABS: Anion Gap 14 mmol/L (10-20); BUN (Urea Nitrogen) 32 mg/dL (9.8-20.1); Calc. Creatinine Clearance 7 mL/min (70-130); Calcium 8.3 mg/dL (7.8-10.44); Carbon Dioxide 25 mmol/L (23-31); Chloride 101 mmol/L (98-107); Estimated GFR 7; Glucose 187 mg/dL (83-110); Sodium 136 mmol/L (136-145)
[2023-11-10 08:06] LABS: Vancomycin, Random 13.3 ug/mL (See Comment)
[2023-11-10] MEDS: LevoFLOXacin 500 mg/D5W 500 MG in Premix 1 BAG IVPB SCH (16:01)
[2023-11-10] MEDS: Vancomycin HCl 750 MG in Sodium Chloride 0.9% 250 ML 250 ML IVPB SCH (18:29)
[2023-11-11 03:51] LABS: #Eosinphils 0.4 10x3/uL (0.0-0.5); #Monocytes 0.8 10x3/uL (0.0-1.1); %Basophils 0.6 % (0.0-2.0); %Eosinophils 5.1 % (0.0-6.0); %Lymphocytes 12.7 % (18.0-47.0); %Monocytes 10.7 % (0.0-10.0); %Neutrophils 70.5 % (40.0-75.0); Hematocrit 35.4 % (34.9-44.5); Hemoglobin 10.6 g/dL (12.0-15.5); Mean Corpuscular HGB CONC 29.9 g/dL (32.0-36.0); Mean Corpuscular Hemoglobin 25.2 pg (27.0-33.0); Mean Corpuscular Volume 84.1 fl (81.6-98.3); Mean Platelet Volume 9.8 fl (7.4-10.4); Platelet Count 298 10x3/uL (150-450); RBC Distribution Width 17.8 % (11.5-14.5); Red Blood Cell (RBC) Count 4.21 10x6/uL (3.90-5.03); White Blood Cell (WBC) Count 7.1 10x3/uL (3.5-10.5)
[2023-11-11 04:05] LABS: Anion Gap 13 mmol/L (10-20); BUN (Urea Nitrogen) 19 mg/dL (9.8-20.1); Calc. Creatinine Clearance 9 mL/min (70-130); Calcium 8.4 mg/dL (7.8-10.44); Carbon Dioxide 30 mmol/L (23-31); Chloride 100 mmol/L (98-107); Estimated GFR 9; Glucose 276 mg/dL (83-110); Potassium 4.1 mmol/L (3.5-5.1); Sodium 139 mmol/L (136-145)
[2023-11-11 08:24] VITALS: BP 114/60; TEMP 98.5
== END 2023-11-11 11:20 | disposition home or self-care (01) | DRG 280 ==
LOC: CSHERS 07:11 → CSHERHOLD 07:30 → CSHIMCU 13:19 → CSHTELE 11-10 00:03
PROVIDERS: ADMIT Family Medicine; ATTEND Hospitalist
PROC: 5A09357 Assistance with Respiratory Ventilation, Less than 24 Consecutive Hours, Continuous Positive Airway Pressure (ICD-10-PCS; principal; 2023-11-08)
PROC: 5A1D70Z Performance of Urinary Filtration, Intermittent, Less than 6 Hours Per Day (ICD-10-PCS; 2023-11-08)
DX: I13.2 Hypertensive heart and chronic kidney disease with heart failure and with stage 5 chronic kidney disease, or end stage renal disease (principal); I21.A1 Myocardial infarction type 2; I50.33 Acute on chronic diastolic (congestive) heart failure; J96.01 Acute respiratory failure with hypoxia; N18.6 End stage renal disease; I16.1 Hypertensive emergency; Z79.82 Long term (current) use of aspirin; Z79.899 Other long term (current) drug therapy; Z79.4 Long term (current) use of insulin; E03.9 Hypothyroidism, unspecified; J44.9 Chronic obstructive pulmonary disease, unspecified; Z98.51 Tubal ligation status; Z51.5 Encounter for palliative care; Z98.890 Other specified postprocedural states; E78.5 Hyperlipidemia, unspecified; Z86.73 Personal history of transient ischemic attack (TIA), and cerebral infarction without residual deficits; E11.22 Type 2 diabetes mellitus with diabetic chronic kidney disease; Z99.2 Dependence on renal dialysis; D63.1 Anemia in chronic kidney disease; Z98.49 Cataract extraction status, unspecified eye; I35.0 Nonrheumatic aortic (valve) stenosis
CPT/HCPCS: 0241U; 36415; 36416; 71045; 80048; 80053; 80061; 80202; 82805; 83605; 83735; 83880; 84145; 84484; 85025; 87040; 90935; 93005; 94640; 94660; 94664; 94760; 96374; 96375; G0257; J0692; J0696; J1644; J1815; J1956; J2405; J2930; J3370; J3475; J3490; J7050; J7620

== ENCOUNTER 2023-11-12 12:32 | Emergency (ER) | payer MEDICARE, OTHER ==
[2023-11-12 13:53] LABS: #Basophils 0.1 10x3/uL (0.0-0.2); #Eosinphils 0.5 10x3/uL (0.0-0.5); #Monocytes 0.9 10x3/uL (0.0-1.1); #Neutrophils 6.1 10x3/uL (1.5-8.4); %Basophils 0.8 % (0.0-2.0); %Eosinophils 5.3 % (0.0-6.0); %Monocytes 10.3 % (0.0-10.0); %Neutrophils 72.4 % (40.0-75.0); Hematocrit 36.7 % (34.9-44.5); Mean Corpuscular Hemoglobin 25.3 pg (27.0-33.0); Mean Corpuscular Volume 84.4 fl (81.6-98.3); Mean Platelet Volume 9.2 fl (7.4-10.4); Platelet Count 307 10x3/uL (150-450); RBC Distribution Width 18.3 % (11.5-14.5); Red Blood Cell (RBC) Count 4.35 10x6/uL (3.90-5.03); White Blood Cell (WBC) Count 8.5 10x3/uL (3.5-10.5)
[2023-11-12 14:06] LABS: Troponin I 0.142 ng/mL (< 0.028)
[2023-11-12 14:11] LABS: ALT (SGPT) 7 U/L (8-55); AST (SGOT) 13 U/L (5-34); Alkaline Phosphatase 139 U/L (40-110); Anion Gap 20 mmol/L (10-20); BUN (Urea Nitrogen) 33 mg/dL (9.8-20.1); Bilirubin, Total 0.4 mg/dL (0.2-1.2); Calc. Creatinine Clearance 0 mL/min (70-130); Calcium 8.6 mg/dL (7.8-10.44); Carbon Dioxide 24 mmol/L (23-31); Chloride 98 mmol/L (98-107); Estimated GFR 5; Globulin 2.5 g/dL (2.4-3.5); Glucose 293 mg/dL (83-110); Magnesium 2.2 mg/dL (1.6-2.6); Potassium 4.8 mmol/L (3.5-5.1); Protein, Total 5.5 g/dL (5.8-8.1); Sodium 137 mmol/L (136-145)
== END 2023-11-12 15:38 | disposition home or self-care (01) ==
LOC: CSHERS 12:32
DX: R53.1 Weakness (principal); E11.9 Type 2 diabetes mellitus without complications; I10 Essential (primary) hypertension; J44.9 Chronic obstructive pulmonary disease, unspecified
CPT/HCPCS: 36415; 36416; 80053; 83735; 84484; 85025; 93005

== ENCOUNTER 2023-11-20 10:40 | Outpatient (CLI) | payer MEDICARE, OTHER | END 2023-11-20 10:41 | disposition home or self-care (01) | LOC: CSHULT 10:40 | PROVIDERS: ATTEND Urology | DX: N28.89 Other specified disorders of kidney and ureter (principal) | CPT/HCPCS: 76770 ==

== ENCOUNTER 2023-11-22 12:10 | Emergency (ER) | payer MEDICARE, OTHER | END 2023-11-22 13:42 | disposition home or self-care (01) | LOC: CSHERS 12:10 | DX: K56.41 Fecal impaction (principal); E11.9 Type 2 diabetes mellitus without complications; I10 Essential (primary) hypertension; J44.9 Chronic obstructive pulmonary disease, unspecified; Z99.2 Dependence on renal dialysis | CPT/HCPCS: 99283 ==

== ENCOUNTER 2024-04-06 19:12 | Emergency (ER) | payer MEDICARE ==
[2024-04-06] MEDS ORDERED: cloNIDine 0.1 MG TAB ONE (21:23)
== END 2024-04-06 22:13 | disposition home or self-care (01) ==
LOC: CSHERS 19:12
DX: S70.01XA Contusion of right hip, initial encounter (principal); I10 Essential (primary) hypertension; E11.9 Type 2 diabetes mellitus without complications; E11.22 Type 2 diabetes mellitus with diabetic chronic kidney disease; I12.0 Hypertensive chronic kidney disease with stage 5 chronic kidney disease or end stage renal disease; N18.6 End stage renal disease; E03.9 Hypothyroidism, unspecified; Z79.82 Long term (current) use of aspirin; Z99.2 Dependence on renal dialysis; Z79.4 Long term (current) use of insulin; Z79.899 Other long term (current) drug therapy; W18.30XA Fall on same level, unspecified, initial encounter; Y92.002 Bathroom of unspecified non-institutional (private) residence as the place of occurrence of the external cause
CPT/HCPCS: 72170; 72192; 73502; 99284; G0390